=== PATIENT | female | born 1960 | race Caucasian/White ===

== ENCOUNTER 2024-05-02 08:54 | Inpatient (IN) ==
--- OUTSIDE RECORDS SUMMARY | 2024-05-02 09:01 | External Medical Summary | Summary of Care ---
Author Name Unknown Organization [facility] Address [address] [place] [address] Phone [phone] Care Team Providers Care Parimutuel Ticket Seller Name Role Phone Unavailable Primary Care Provider Unavailabl e Reason for Visit * Reason Comments Outpatient Testing Encounter Details Date Type Department Care Team (Late st Contact Info) Description 03/04/2024 8:40 AM EDT Laboratory Laboratory [facility] [address] [place] [phone] [facility] [address] [facility] [place] [address] Elevated cholesterol Allergies Active Allergy Reactions Criticality Noted Date Comments Codeine 2011 Sulfa Antibiotics 07/20/1997 stomach, SOB, throat swelling documented as of this encounter (statuses as of 03/04/2024) Medications Medication Sig Dispensed Refills Start Date End Date Status MULTIVITAMIN TABS OR 1 tbalet daily 0 09/24/2002 Active FISH OIL 1000 MG PO CAPS 1bid Active Triamcinolone Acetonide 0.5 % creamIndications:De rmatitis Apply topically to affected area 2 times a day. To affected area. 60 g 0 02/23/2016 Active Calcium & Vit D3 Bone Health Oral Liquid Take by mouth . Active Probiotic-Prebiotic 1-250 BILLION-MG Oral Capsule Take by mouth . Active Co Q-10 100 MG Oral Capsule Take by mouth. Active Antioxidant Formula Oral Capsule Take by mouth. Active Black Pepper-Turmeric 3-500 MG Oral Capsule Take 4 Capsules by mouth in the morning and 4 Capsules before bedtime. Active Metoprolol Succinate ER 25 MG Oral Tablet Extended Release 24 Hour (Toprol XL) One half tablet by mouth daily with your event meal 45 Tablet 3 11/14/2023 Active Additional Information Patient not taking.Reported on 12/23/2023 documented as of this encounter (statuses as of 03/04/2024) Active Problems Problem Noted Date Diagnosed Date Heart palpitations 10/14/2023 Elevated blood pressure reading 10/14/2023 Irritation of both eyes 10/14/2023 Fibroid, uterine 06/28/2017 Family history of hypothyroidism 12/19/2014 Elevated liver enzymes 12/19/2014 Overview: January 2016 WNL. Menopause 12/19/2014 Family history of hypertension 12/19/2014 Fam hx-osteoporosis 05/06/2012 Breast implant rupture 10/09/2011 Neoplasm of uncertain behavior of skin 0 ADVANCE DIRECTIVE INFORMATION 03/05/2006 Overview: Pt will supply copy. Mild Depression 05/31/1999 Family Hx Ovarian Ca in mother Family Hx malignant melanoma in father documented as of this encounter (statuses as of 03/04/2024) Resolved Problems Problem Noted Date Diagnosed Date Resolved Date Polymyalgia rheumatica 12/16/201704/07 Overview: On a 2.5 mg per month prednisone wean Elevated LFTs 06/05/2016 06/05/2016 Vitamin D insufficiency 12/22/201408/30 Overview: November 2014 = 20. See PCP. January 2016 = 35. Taking supplementation during winter months. 2017 - sufficient levels, taking supplement biliary spasm 08/12/2001 01/29/2018 documented as of this encounter (statuses as of 03/04/2024) Immunizations Name Administration Dates Next Due COVID-19 mRNA, LNP-s, No Pre serve, 2-Dose Series (Moderna) 11/21/2020,10/26/2020 HEP A - Hepatitis A (Adult > 18 yrs) 07/25/2015 PPD 02/17/2006 Seasonal Influenza, PF, 6 M & above, IM , (FluLaval or Fluzone) 08/03/2021,08/17/2020,09/16/2019,2016 Seasonal Influenza, Quadriva lent, No Preserve, IM 07/22/2016,07/25/2015 Seasonal Influenza, Split, I IV3, With Preserve, Inj 07/30/2013,09/27/2010 TDAP, Age 7 and older, IM (Adacel) 02/18/2022, Typhoid Vaccine Oral (Vivotif) 07/13/2015 Zoster Vaccine Recombinant (Shingrix) 11/30/2019 ,09/16/2019 documented as of this encounter Social History Tobacco Use Types Packs/Day Years Used Date Smoking Tobacco: Former Cigarettes Q uit: 09/29/1979 Smokeless Tobacco: Never Comments:Quit at 20 Alcohol Use Standard Drinks/Week Comments Yes 0 (1 standard drink = 0.6 oz pur e alcohol) SOCIALLY PHQ-2 Answer Date Recorded PHQ-2 Score 1 11/30/2019 Hunger Vital Sign Answer Date Recorded Within the past 12 months, y ou worried that your food would run out before you got the money to buy more. Never true 09/17/20 22 Within the past 12 months, t he food you bought just didn't last and you didn't have money to get more. Never true 09/17/2022 Sex and Gender Information Value Date Recorded Sex Assigned at Female 08/02/2021 10:01 AM EDT Gender Identity Female 08/02/2021 10:01 AM EDT Sexual Orientation Straight 08/02/2021 10 :01 AM EDT Job Start Date Occupation Industry Not on file Not on file Not on file documented as of this encounter Plan of Treatment Upcoming Encounters Date Type Department Care Team (Late st Contact Info) Description 03/12/2024 8:00 AM EDT Office Visit Gastroenterology, Jorge Bellamy [address] [place] [address] [place] [phone] Rosemarie Mayo PA-C [facility] [place] [address] Pending Results Name Type Priority Associated Diagnoses Date /Time LIPID PANEL WITH DIRECT LDL IF TG IS HIGH Lab Routine Elevated cholesterol 03/04/2024 7:35 AM EDT CRP, HIGH SENSITIVITY (CARDIOVASCULAR RISK) Lab Routine Elevated cholesterol 03/04/2024 7:35 AM EDT Scheduled Procedures Name Priority Associated Diagnoses Date/Ti me COLONOSCOPY FLEXIBLE PROXIMAL DIAGNOSTIC Recall History of colon polyps Health Maintenance Due Date Last Done Comments Hepatitis C Screening 1977 Cologuard 02/21/2004 Fecal Occult Blood Test 02/21/2004 Sigmoidoscopy 02/21/2004 COVID-19 Vaccine (3 - 2022- season) 2023 11/21/2020, 10/26/2020 Pneumococcal Vaccine: 65+ Years (1 of 1 - PCV) 02/21/2024 Mammogram 11/17/2024 11/17/2023, 03/29, 03/12/2019, Additional history exists Lipid Panel 11/12/2028 11/12/2023, 11/2019, 12/22/2014, Additional history exists DTaP,Tdap,and Td Vaccines (3 - Td or Tdap) 02/19/2032 02/18/2022, 01/02/2012, 11/05/2000 DXA Scan 02/19/2032 02/18/2022 Colonoscopy 10/15/2032 10/15/2022, 09/29, 06/24/2016, Additional history exists Colorectal Cancer Screening 10/15/2032 Zoster Vaccines Completed 11/30/2019, 09/16/2019 Cervical Cancer Screening Discontinued Pap Smear Discontinued 09/20/2020, 05/31, 06/05/2016, Additional history exists RETIRED - COLONOSCOPY-EVERY 5 YRS AGES 18-100 Discontinued 10/15/2022, 10/15/2022, 06/24/2016, Additional history exists Influenza Vaccine (FLU shot) Completed 07/04/2023, 08/03/2021, 08/17/2020, Additional history exists GARDASIL-HPV IMMUNIZATION SERIES Aged Out No longer eligible based on patient's age to complete this topic HPV/Co-Test Discontinued Hepatitis B Aged Out No longer eligi ble based on patient's age to complete this topic MENINGOCOCCAL (MENACTRA/MENVEO) Aged Out No longer eligible based on patient's age to complete this topic documented as of this encounter Medical Devices Implanted Type Area Policy Checker Device Identifier Shelf Expiration Date Model / Serial / Lot Implant Breast Katie [id number] - [id number] Implanted:Qty: 1 on 09/19/2011 at [facility] Right: Breast [employer] 02/26/2016 [id number] / [id number] / [id number] documented as of this encounter Visit Diagnoses Diagnosis Elevated cholesterol Pure hypercholesterolemia documented in this encounter Advance Directives * Full Code (Latest Code Status on File) Date Activated Date Inactivated Comments 09/19/2011 10:38 AM 09/19/2011 5:20 PM This orde r reflects the patients wishes and were consensually agreed upon. Question Answer Comments Discussion of Advance Directives occurred with: Patient
--- OUTSIDE RECORDS SUMMARY | 2024-05-02 09:01 | External Medical Summary ---
Author Name Unknown Address Unknown Organization [id number][place] [place] [address] [facility] [address] Laboratory Report Ordering Provider Test Date Status ADELINE BHATIA 03/04/2024 07:35:56 Final Observation Date Value Abnormality Reference (Units ) Status Triglyceride 03/04/2024 07:35:56 40 <=174 ( mg/dL) Final Triglyceride Reference Range s (mg/dL):
<150 Acceptable
150-174 Borderline high
175-499 High
>=500 Very high Cholesterol 03/04/2024 07:35:56 212 Above high normal <200 (mg/dL) Final Total Cholesterol Reference Ranges (mg/dL):
<200 Desirable
200-239 Borderline high
>=240 High HDL 03/04/2024 07:35:56 77 >49 (mg/dL ) Final HDL Cholesterol Reference Ra nges (mg/dL):
>=60 High (Desirable)
<50 Low (Undesirable) For Females
<40 Low (Undesirable) For Males NON-HDL CHOLESTEROL 03/04/2024 07:35:56 135 <=159 (mg/dL) Final Non-HDL Cholesterol Referenc e Range (mg/dL):
<100 Target level for high risk ASCVD patient
<130 Optimal for general population
130-159 Near optimal for general population
160-189 Borderline High
190-219 High
>=220 Very High LDL, (calculated) 03/04/2024 07:35:56 127 <= 129 (mg/dL) Final LDL Cholesterol Reference Ra nges (mg/dL):
<70 Target level for high risk ASCVD patient
<100 Optimal for general population
100-129 Near optimal for general population
130-159 Borderline high
160-189 High
>=190 Very high Performing Location [facility] [place] [address] [facility] [address]
--- OUTSIDE RECORDS SUMMARY | 2024-05-02 09:01 | External Medical Summary ---
Author Name Unknown Address Unknown Organization [id number]:[facility] [place] [address] [place] [address] Laboratory Report Ordering Provider Test Date Status ADELINE BHATIA 03/04/2024 07:35:56 Final Cardiovascular Disease Risk Assessment
(Relative Risk)
<1.0 mg/L Low
1.0-3.0 mg/L Average
>3.0 mg/L High

*This table may not apply in certain inflammatory conditions. Observation Date Value Abnormality Reference (Units ) Status CRP, High-sensitivity 03/04/2024 07:35:56 3.83 Above high normal <=3.00 (mg/L) Final Performing Location [facility] [place] [address] [place] [address]
--- OUTSIDE RECORDS SUMMARY | 2024-05-02 09:01 | External Medical Summary | Summary of Care ---
Author Name Unknown Organization [facility] Address [address] [place] [address] Phone [phone] Care Team Providers Care Layup Worker Name Role Phone Unavailable Primary Care Provider Unavailabl e Reason for Visit * Reason Onset Date Comments Appointment 03/01/2024 Encounter Details Date Type Department Care Team (Late st Contact Info) Description 03/01/2024 Telephone [address], [place] [address] [facility] [place] [address] Janis Patel, RT (R) Appointment Allergies Active Allergy Reactions Criticality Noted Date Comments Codeine 2011 Sulfa Antibiotics 07/20/1997 stomach, SOB, throat swelling documented as of this encounter (statuses as of 03/01/2024) Medications Medication Sig Dispensed Refills Start Date [...] as of this encounter (statuses as of 03/01/2024) Active Problems Problem Noted Date Diagnosed Date [...] as of this encounter (statuses as of 03/01/2024) Resolved Problems Problem Noted Date Diagnosed Date Resolved Date Polymyalgia rheumatica 12/16/201704/07 Overview: On a 2.5 mg per month prednisone wean Elevated LFTs 06/05/2016 06/05/2016 Vitamin D insufficiency 12/22/201408/30 Overview: November 2014 = 20. See PCP. January 2016 = 35. Taking supplementation during winter months. 2017 - sufficient levels, taking supplement biliary spasm 08/12/2001 01/29/2018 documented as of this encounter (statuses as of 03/01/2024) Immunizations Name Administration Dates Next Due COVID-19 [...] on file documented as of this encounter Miscellaneous Notes * Telephone Encounter - Janis Patel RT (R) - 03/01/2024 3:02 PM EDT Left message for patient to arrive at 3:30pm for check in and to call back with any yes answers to screening questions documented in this encounter Plan of Treatment Upcoming Encounters Date Type Department Care Team (Late st Contact Info) Description 03/02/2024 4:00 PM EDT Imaging Radiology [address] [place] [address] 03/04/2024 7:00 AM EDT Imaging Radiology [address] [place] [address] 03/12/2024 8:00 AM EDT Office Visit Gastroenterology, Jorge Bellamy [address] [place] [phone] Rosemarie Mayo PA-C [address] [facility] [place] [address] Scheduled Procedures Name Priority Associated Diagnoses Date/Ti me COLONOSCOPY FLEXIBLE PROXIMAL DIAGNOSTIC Recall History of colon polyps Health Maintenance Due Date Last Done Comments Hepatitis C Screening 1977 Cologuard 02/21/2004 Fecal Occult Blood Test 02/21/2004 Sigmoidoscopy 02/21/2004 COVID-19 Vaccine (2022- season) 2023 11/21/2020, 10/26/2020 Pneumococcal Vaccine: 65+ [...] this encounter Medical Devices Implanted Type Area Transplant Registered Nurse Device Identifier Shelf Expiration Date Model / Serial / Lot Implant Breast Katie [id number] - [id number] Implanted:Qty: 1 on 09/19/2011 at [facility] Right: Breast [employer] CARLIN 02/26/2016 [id number] / [id number] / [id number] documented as of this encounter Advance Directives * Full Code (Latest Code Status on File) Date Activated Date Inactivated Comments 09/19/2011 10:38 AM 09/19/2011 5:20 PM This orde r reflects the patients wishes and were consensually agreed upon. Question Answer Comments Discussion of Advance Directives occurred with: Patient
--- OUTSIDE RECORDS SUMMARY | 2024-05-02 09:01 | External Medical Summary | Summary of Care ---
Author Name Unknown Organization [facility] Address [address] [place] [address] Phone [phone] Care Team Providers Care Wellness Manager Name Role Phone Unavailable Primary Care Provider Unavailabl e Encounter Details Date Type Department Care Team (Late st Contact Info) Description 01/22/2024 Result Scan Unspecified Department <No scans attached> Allergies Active Allergy Reactions Criticality Noted Date Comments Codeine 2011 Sulfa Antibiotics 07/20/1997 stomach, SOB, throat swelling documented as of this encounter (statuses as of 01/26/2024) Medications Medication Sig Dispensed Refills Start Date End Date Status MULTIVITAMIN TABS OR 1 tbalet daily 0 09/24/2002 Active FISH OIL 1000 MG PO CAPS 1bid 0 Active Triamcinolone Acetonide 0.5 % creamIndications:De rmatitis Apply topically to affected area 2 times a day. To affected area. 60 g 0 02/23/2016 Active Calcium & Vit D3 Bone Health Oral Liquid Take by mouth . 0 Active Probiotic-Prebiotic 1-250 BILLION-MG Oral Capsule Take by mouth . 0 Active Co Q-10 100 MG Oral Capsule Take by mouth. 0 Active Antioxidant Formula Oral Capsule Take by mouth. 0 Active Black Pepper-Turmeric 3-500 MG Oral Capsule Take 4 Capsules by mouth in the morning and 4 Capsules before bedtime. 0 Active Metoprolol Succinate ER 25 MG Oral Tablet Extended Release 24 Hour (Toprol XL) One half tablet by mouth daily with your event meal 45 Tablet 3 11/14/2023 Active Additional Information Patient not taking.Reported on 12/23/2023 documented as of this encounter (statuses as of 01/26/2024) Active Problems Problem Noted Date Diagnosed Date [...] as of this encounter (statuses as of 01/26/2024) Resolved Problems Problem Noted Date Diagnosed Date Resolved Date Polymyalgia rheumatica 12/16/201704/07 Overview: On a 2.5 mg per month prednisone wean Elevated LFTs 06/05/2016 06/05/2016 Vitamin D insufficiency 12/22/201408/30 Overview: November 2014 = 20. See PCP. January 2016 = 35. Taking supplementation during winter months. 2016 - sufficient levels, taking supplement biliary spasm 08/12/2001 01/29/2018 documented as of this encounter (statuses as of 01/26/2024) Immunizations Name Administration Dates Next Due COVID-19 mRNA, LNP-s, No Pre serve, 2-Dose Series (Moderna) 11/21/2020,10/26/2020 HEP A - Hepatitis A (Adult > 18 yrs) 07/25/2015 PPD 02/17/2006 Seasonal Influenza, PF, 6 M & above, IM , (FluLaval or Fluzone) 08/03/2021,08/17/2020,09/16/2019,2016 Seasonal Influenza, Quadriva lent, No Preserve, IM 07/22/2016,07/25/2015 Seasonal Influenza, Split, I IV3, With Preserve, Inj 07/30/2013,09/27/2010 TDAP (age 11 and older)(Adacel) 02/18/2022,01/01 Typhoid Vaccine Oral (Vivotif) 07/13/2015 Zoster Vaccine [...] Care Team (Late st Contact Info) Description 01/30/2024 2:30 PM EDT Imaging Radiology [address] [place] [address] 03/12/2024 8:00 AM EDT Office Visit Gastroenterology, Jorge Bellamy [address] [place] [address] [place] [phone] Rosemarie Mayo PA-C [address] [place] [address] [place] [phone] Scheduled Procedures Name Priority Associated Diagnoses Date/Ti me COLONOSCOPY FLEXIBLE PROXIMAL DIAGNOSTIC Recall History of colon polyps Health Maintenance Due Date Last Done Comments Hepatitis C Screening 1977 HPV/Co-Test 1989 Cologuard 02/21/2004 Fecal Occult Blood Test 02/21/2004 Sigmoidoscopy 02/21/2004 COVID-19 Vaccine ( season) 2023 11/21/2020, 10/26/2020 Cervical Cancer Screening 09/20/2023 Pap Smear 09/20/2023 09/20/2020, 05/31, 06/05/2016, Additional history exists Mammogram 11/17/2024 11/17/2023, 03/29, 03/12/2019, Additional history exists Lipid Panel 11/12/2028 11/12/2023, 11/2019, 12/22/2014, Additional history exists DTaP,Tdap,and Td Vaccines (3 - Td or Tdap) 02/19/2032 02/18/2022, 01/02/2012, 11/05/2000 Colonoscopy 10/15/2032 10/15/2022, 09/29, 06/24/2016, Additional history exists Colorectal Cancer Screening 10/15/2032 Zoster Vaccines Completed 11/30/2019, 09/16/2019 RETIRED - COLONOSCOPY-EVERY 5 YRS AGES 18-100 Discontinued 10/15/2022, 10/15/2022, 06/24/2016, Additional history exists Influenza Vaccine (FLU shot) Completed 07/04/2023, 08/03/2021, 08/17/2020, Additional history exists GARDASIL-HPV IMMUNIZATION SERIES Aged Out No longer eligible based on patient's age to complete this topic Hepatitis B Aged Out No longer eligi ble based on patient's age to complete this topic MENINGOCOCCAL (MENACTRA/MENVEO) Aged Out No longer eligible based on patient's age to complete this topic Pneumococcal Vaccine: Pediatrics (0 to 5 Years) and At-Risk Patients (6 to 64 Years) Aged Out No longer eligible based on patient's age to complete this topic documented as of this encounter Medical Devices Implanted Type Area Telehealth Nurse Educator Device Identifier Shelf Expiration Date Model / Serial / Lot Implant Breast Katie [id number] - [id number] [place]ed:[place] 09[place]19[place] [facility] [place] Breast [employer]ENT[employer] CARLIN 02/26/2016 [id number] / [id number] / [id number] documented as of this encounter Procedures Procedure Name Priority Date/Time Associated Diagnosis Comments ECHOCARDIOLOGY SCANNED RESULT 01/22/2024 documented in this encounter Results * ECHOCARDIOLOGY SCANNED RESULT (01/22/2024) 01/22/2024 No Physician Data Unknown ECHOCARDIOLOGY documented in this encounter Advance Directives Latest Code Status on File Code Status Date Activated Date Inactivated Comments Full Code 09/19/2011 10:38 AM 09/19/2011 5:20 PM Th is order reflects the patients wishes and were consensually agreed upon. Question Answer Comments Discussion of Advance Directives occurred with: Patient
--- OUTSIDE RECORDS SUMMARY | 2024-05-02 09:01 | External Medical Summary | Summary of Care ---
Author Name Unknown Organization [facility] Address [address] [place] [address] Phone [phone] Care Team Providers Care Furniture And Bedding Inspector Name Role Phone Unavailable Primary Care Provider Unavailabl e Reason for Referral * Precert (Within 10 days (routine)) - Pending Review Specialty Diagnoses / Procedures Referred By Nav t Referred To Contact Cardiac Studies Diagnoses Interatrial cardiac shunt Nonrheumatic mitral valve regurgitation Nonrheumatic aortic valve insufficiency Nonrheumatic tricuspid valve regurgitation Procedures TRANSESOPHAGEAL ECHO (COMPLETE) Viktor Cook DO [address] [place] [address] Referral ID Status Reason Start Date Expiration Date Visits Requested Visits Authorized [id number] Pending Review Precert 12/24/2023 999 999 Reason for Visit * Reason Comments Follow Up Encounter Details Date Type Department Care Team (Latest Contact Info) Description 12/23/2023 2:00 PM EDT Office Visit Cardiology, [facility] [address] [facility] [place] [address] Viktor Cook DO [address] [facility] [place] [address] Interatrial cardiac shunt*; Nonrheumatic mitral valve regurgitation; Nonrheumatic aortic valve insufficiency; Nonrheumatic tricuspid valve regurgitation; PSVT (paroxysmal supraventricular tachycardia) Allergies Active Allergy Reactions Criticality Noted Date Comments Codeine 2011 Sulfa Antibiotics 07/20/1997 stomach, SOB, throat swelling documented as of this encounter (statuses as of 02/25/2024) Medications Medication Sig Dispensed Refills Start Date [...] as of this encounter (statuses as of 02/25/2024) Active Problems Problem Noted Date Diagnosed Date [...] as of this encounter (statuses as of 02/25/2024) Resolved Problems Problem Noted Date Diagnosed Date Resolved Date Polymyalgia rheumatica 12/16/201704/07 Overview: On a 2.5 mg per month prednisone wean Elevated LFTs 06/05/2016 06/05/2016 Vitamin D insufficiency 12/22/201408/30 Overview: November 2014 = 21. See PCP. January 2016 = 36. Taking supplementation during winter months. 2017 - sufficient levels, taking supplement biliary spasm 08/12/2001 01/29/2018 documented as of this encounter (statuses as of 02/25/2024) Immunizations Name Administration Dates Next Due COVID-19 mRNA, LNP-s, No Pre serve, 2-Dose Series (Moderna) 11/21/2020,10/26/2020 HEP A - Hepatitis A (Adult > 18 yrs) 07/25/2015 PPD 02/17/2006,12/30/2003,12/16/2003 Seasonal Influenza Virus Vac cine, Unspecified Formulation 07/20/1997 Seasonal Influenza, PF, 6 M & above, IM , (FluLaval or Fluzone) 08/03/2021,08/17/2020,09/16/2019,2016 Seasonal Influenza, Quadriva lent, No Preserve, IM 07/22/2016,07/25/2015 Seasonal Influenza, Split, I IV3, With Preserve, Inj 07/30/2013,09/27/2010 TD - Tetanus/Diptheria (ADULT) 11/05/2000 TDAP, Age 7 and older, IM (Adacel) 02/18/2022, Typhoid Vaccine Oral (Vivotif) 07/13/2015 Zoster Vaccine Recombinant (Shingrix) 11/30/2019 ,09/16/2019 documented as of this encounter Social History Tobacco Use Types Packs/Day Years Used Date Smoking Tobacco: Former Cigarettes Q uit: 09/29/1979 Smokeless Tobacco: Never Tobacco Cessation:Counseling Given: No Comments:Quit at 20 Alcohol Use Standard Drinks/Week [...] on file documented as of this encounter Last Filed Vital Signs Vital Sign Reading Time Taken Comments Blood Pressure 138/60 12/23/2023 1:56 PM EDT Pulse 60 12/23/2023 1:56 PM EDT Temperature - - Respiratory Rate 12 12/23/2023 1:56 PM EDT Oxygen Saturation - - Inhaled Oxygen Concentration - - Weight 49.4 kg (108 lb 14.4 oz) 12/23/2023 1:56 PM EDT Height - - Body Mass Index 20.24 10/14/2023 10:47 AM EST documented in this encounter Progress Notes * Viktor Cook, - 02/25/2024 5:45 PM EDT Addendum: Ms. Haile is a 64-year-old physically active female. In October, she had undergone a screening lipid panel with findings of elevated total cholesterol level of 244 milligrams/deciliter, LDL cholesterol 145 milligrams/deciliter. BP Readings from Last 4 Encounters: 12/23/23 138/60 12/15/23 134/85 11/14/23 144/56 10/14/23 160/80 Latest Reference Range & Units 11/12/23 07:23 Triglycerides <=174 mg/dL 47 Cholesterol <200 mg/dL 244 (H) Non-HDL Cholesterol <=159 mg/dL 154 HDL Cholesterol >49 mg/dL 90 LDL Cholesterol <=129 mg/dL 145 (H) (H): Data is abnormally high She has a history of a mildly elevated blood pressure reading at her most recent clinic visit without the diagnosis of hypertension, no known coronary or vascular disease, and no family history of premature coronary heart disease She was very concerned with regards to her risk given the cholesterol findings, and requests further risk stratification. Recommend proceeding with a high sensitivity C-reactive protein and a CT calcium score. Her ACC/ AHA 10 year cohort risk of ASCVD event= 5.8%. Patient aware that if insurance does not approve the calcium score, [id number] cost would be around $200. DO Viktor Medrano DO 02/25/2024 5:45 PM * Viktor Cook DO - 12/23/2023 2:25 PM EDT 12/23/2023 Cardiology Follow Up CHIEF COMPLAINT: Paroxysmal supraventricular tachycardia, valvular heart disease, interatrial shunt SUBJECTIVE: Tatiana Haile is a 63 year old year old female who presents today in follow-up of the above concerns. She was accompanied by her , Alan. She had initially been seen in consultation in October, for the evaluation of palpitations and chest discomfort. 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 She had previously been a regular runner, and hikes regularly walking 20 to 30 miles per week. She and her plan an upcoming hike in [place] in Jan, 2024. At present she notes that her palpitations have not worsened. At her previous appointment she had been counseled to start metoprolol succinate 12.5 milligrams daily. She picked up the prescription but it yet to start it pending further discussion at the time of today's visit. She had undergone an exercise stress echocardiogram with results as noted below as well as a Zio patch with results as noted below. Extensive ROS: All systems reviewed & are unremarkable except as noted in HPI & below Cardiovascular (chest pain/palpitations/fluttering/diaphoresis/dyspnea on exertion/paroxysmally nocturnal dyspnea):Negative Review of patient's allergies indicates: Allergen Reactions Codeine Sulfa Antibiotics stomach, SOB, throat swelling Current Outpatient Medications Medication Sig Dispense Refill MULTIVITAMIN TABS OR 1 tbalet daily 0 FISH OIL 1000 MG PO CAPS 1bid Triamcinolone Acetonide 0.5 % cream Apply topically to affected area 2 times a day. To affected area. 60 g 0 Calcium & Vit D3 Bone Health Oral Liquid Take by mouth . Probiotic-Prebiotic 1-250 BILLION-MG Oral Capsule Take by mouth . Co Q-10 100 MG Oral Capsule Take by mouth. Antioxidant Formula Oral Capsule Take by mouth. Black Pepper-Turmeric 3-500 MG Oral Capsule Take 4 Capsules by mouth in the morning and 4 Capsules before bedtime. Metoprolol Succinate ER 25 MG Oral Tablet Extended Release 24 Hour (Toprol XL) One half tablet by mouth daily with your event meal (Patient not taking: Reported on 12/23/2023) 45 Tablet 3 No current facility-administered medications for this visit. OBJECTIVE/PHYSICAL EXAMINATION: BP 138/60 (BP Site: Left Arm, BP Position: Sitting, BP Cuff Size: Regular) | Pulse 60 | Resp 12 | Wt 49.4 kg (108 lb 14.4 oz) | LMP 03/29/2009 | BMI 20.24 kg/m | BSA 1.46 m General: no acute distress and stated age Eyes: conjunctiva are pink and non-injected, sclera clear Neck: normal jugular venous pulse, no hepatojugular reflux Chest: normal shape and normal respiratory effort Lungs: clear to auscultation , no rales rhonchi or wheezing Cardiac Exam: - regular heart sounds, no murmurs, rubs, or gallops Abdomen: abdomen soft, non-tender, no abnormal masses and no hepatosplenomegaly Musculoskeletal: no gait disturbance, no weakness Extremities: no edema and no cyanosis Neuro: grossly normal exam Psych: appropriate affect and insight. Data: EKG performed 10/14/2023: Sinus bradycardia 59 beats per minute with occasional PACs. Summary of stress echocardiogram performed 12/15/23: The stress test was terminated due to 90 percent of target heart rate achieved walking 12 minutes with a METS of 10.3. No symptoms were noted. Hypertensive blood pressure response to exercise. Normal heart rate response to exercise. No arrhythmias noted during stress. Resting echocardiogram: The qualitative LV ejection fraction is 55-59% (normal). The right ventricular cavity size is normal. The right ventricular systolic function is qualitatively normal. Mild aortic valve regurgitation is present. Mild to moderate mitral regurgitation. Mild tricuspid regurgitation is present. The estimated pulmonary artery systolic pressure is 25mm Hg. Bubble test significantly positive (>20 microbubles) for a right to left intracardiac shunt, possible atrial septal defect can consider transesophageal echocardiogram for further evaluation. Summary of Zio patch monitor from September,: Duration: 13 days, 20 hours Final Interpretation Patient had a min HR of 42 bpm, max HR of 207 bpm, and avg HR of 64 bpm. Predominant underlying rhythm was Sinus Rhythm. 197 Supraventricular Tachycardia runs occurred, the run with the fastest interval lasting 8 beats with a max rate of 207 bpm, the longest lasting 18.6 secs with an avg rate of 130 bpm. Supraventricular Tachycardia was detected within +/- 45 seconds of symptomatic patient event(s). Isolated SVEs were rare (<1.0%), SVE Couplets were rare (<1.0%), and SVE Triplets were rare (<1.0%). Isolated VEs were rare (<1.0%), VE Couplets were rare (<1.0%), and no VE Triplets were present. 5 patient triggered events and 3 diary events were submitted for review. The events correlated withsinus rhythm with premature atrial contractions as well as with brief episodes of supraventricular tachycardia. ASSESSMENT / PLAN: 63 year old year old female ICD-10-CM 1. Interatrial cardiac shunt Q24.8 2. Nonrheumatic mitral valve regurgitation I34.0 3. Nonrheumatic aortic valve insufficiency I35.1 4. Nonrheumatic tricuspid valve regurgitation I36.1 5. PSVT (paroxysmal supraventricular tachycardia) I47.10 Discussion: As noted, stress echocardiogram was negative for inducible ischemia having achieved a high workload. She was found to have underlying valvular heart disease including mild aortic valve regurgitation, uugk-it-wxunblik mitral regurgitation, and mild tricuspid regurgitation with an estimated pulmonary systolic pressure of 25 millimeters Hg (normal). The interatrial septum was noted to be redundant. Ajjvfd-[id number] interatrial shunt was detected with the administration of agitated saline contrast consistent with a PFO or atrial septal defect. Patient agreeable to proceeding with a transesophageal echocardiogram for further evaluation of theinteratrial septum as well as her valvular structure and function. This will likely be performed inApril, before she leaves for her hike. We discussed the results of her Zio patch monitor again in detail. She was going to proceed with a trial of metoprolol succinate 12.5 milligrams daily with her evening meal his most of her symptoms seem to occur close to bedtime. DISPOSITION: Follow Up: Return in about 6 months (around 06/24/2024) for Clinic Visit. | For: Clinic Visit Viktor oCok, Cardiology, [address] [place] [address] This chart was completed in part utilizing [employer] Speech Voice Recognition Software. Grammatical errors, random word insertions, prounoun errors, and incomplete sentences are an occasional consequence of this system due to software limitations, ambient noise, and hardware issues. Any formal questions or concerns about the content, text, or information contained within the body of this dictation should be directly addressed to the provider for clarification. documented in this encounter Nursing Notes * Eli Patel RN - 12/23/2023 1:57 PM EDT Examination Room: 10 Name: Tatiana Haile Date of : (1960). Reason for Visit: Follow up Interim Hospitalization(s): No Problems/Concerns: Here to discuss results of stress testing/echo. Chest Pain/SOB: Denies [facility] Discussed: Not applicable [facility] is a way you can talk to your provider online through e-mail. Would you like to sign up? I can activate it for you? ALREADY ACTIVE Patient was instructed to not get up on the exam table until directed and assisted by their provider; patient is to remain seated in the chair/ wheelchair/ exam table for fall prevention and safety reasons. Patient is aware to have assistance to step down off exam table with personnel. Patient voiced full comprehension of instructions. documented in this encounter Miscellaneous Notes * Pt Handout (on AVS) - JULIETA, PATIENT HANDOUT - 12/23/2023 3:15 PM EDT Images from the original note were not included. [id number] Transesophageal Echocardiography (EDWARD) Transesophageal echocardiography (EDWARD) is a test done to record images of your heart with a probe inside your throat (esophagus). These images help your healthcare provider find and treat problems such as infection, disease, or defects in your heart?s function, white or valves. This test may be done when a chest echocardiogram (transthoracic) doesn't give your provider enough information. A probe in your esophagus produces sound waves. Before your test Tell your healthcare provider about all the medicines you take. Ask if you should take them before the test. Your stomach typically should be empty for this test to prevent vomiting, so your provider will likely tell you not to take them. Follow any directions you're given for not eating or drinking before the procedure. Tell your provider if you have ulcers, a hiatal hernia, or problems swallowing. Also report a history of narrowing of the esophagus, or any other past gastrointestinal problems. A smaller probe may be needed for your study. Let the provider know of any allergies to medicines or sedatives. Also let them know if you have dental implants or dentures that should be removed before the test. Arrange to have someone drive you home after the exam. You'll be given a sedative for the test. It won't be safe to drive for a period of time. During your EDWARD When you arrive for your EDWARD, you'll change into a hospital gown, and then be taken to the testing room. Your provider will spray your throat with a numbing medicine. You may be given a medicine through an IV (intravenous) line in your arm to help you relax. You may also be given oxygen. Then you?ll be asked to lie on your left side. The healthcare provider gently puts the small, lubricated probe into your mouth. A small plasticor rubber bite-block will be put in your mouth to prevent you from biting down on the probe during the test. As you swallow, the provider will slowly guide the tube into your esophagus. You may feel the healthcare provider moving the probe. But it shouldn?t hurt or interfere with your breathing. A nurse checks your heart rate, blood pressure, and breathing. The test usually takes15 to 30 minutes. The nurse paper machine operator will suction any saliva out of your mouth, similar to when you have a dental cleaning. After the test Tell your healthcare provider about any pain. Let them know if you cough up or vomit blood, or have trouble swallowing. Your throat may be sore for a few hours. You can eat and drink again when your throat is no longer numb and you're fully awake. Don't drive a car or run heavy machinery for at least 24 hours after getting sedation. Most people can return to normal activities after 24 hours.. Ask your healthcare provider when it's safe for you to return to normal activities. Keep your follow-up appointment to go over the results with your healthcare provider. Your next appointment is: Last Reviewed Date: 05/30/202119990120-1592 [employer]. All rights reserved. This information is not intended as a substitute for professional medical care. Always follow your healthcare professional's instructions. documented in this encounter Plan of Treatment Upcoming Encounters Date Type Department Care Team (Late st Contact Info) Description 03/02/2024 4:00 PM EDT Imaging Radiology [address], [address] [place] [address] 03/12/2024 8:00 AM EDT [facility] [address] [place] [address] [place] [address] Rosemarie Mayo PA-C [address] [place] [address] [place] [address] Scheduled Orders Name Type Priority Associated Diagnoses Orde r Schedule TRANSESOPHAGEAL ECHO (COMPLETE) Echocardiology Routine Interatrial cardiac shunt Nonrheumatic mitral valve regurgitation Nonrheumatic aortic valve insufficiency Nonrheumatic tricuspid valve regurgitation Expected: 12/24/2023, Expires: 06/24/2024 Scheduled Procedures Name Priority Associated Diagnoses Date/Ti me COLONOSCOPY FLEXIBLE PROXIMAL DIAGNOSTIC Recall History of colon polyps Health Maintenance Due Date Last Done Comments Hepatitis C Screening 1977 Cologuard 02/21/2004 Fecal Occult Blood Test 02/21/2004 Sigmoidoscopy 02/21/2004 COVID-19 Vaccine ( season) 2023 11/21/2020, 10/26/2020 Pneumococcal Vaccine: 65+ Years (1 of 1 - PCV) 02/21/2024 Mammogram 11/17/2024 11/17/2023, 0705/2022, 03/12/2019, Additional history exists Lipid Panel 11/12/2028 11/12/2023, 0311/2019, 12/22/2014, Additional history exists DTaP,Tdap,and Td Vaccines [...] this encounter Medical Devices Implanted Type Area Baggage Security Checker Device Identifier Shelf Expiration Date Model / Serial / Lot Implant Breast Katie [id number] - [id number] Implanted:Qty: 1 on 09/19/2011 at OR [facility] Right: Breast MENTOR CARLIN 02/26/2016 [id number] / [id number] / [id number] documented as of this encounter Results * MAGNESIUM (12/23/2023 3:26 PM EDT) Magnesium 2.4 1.5 - 2.6 mg/dL 12/24/2023 7:37 AM EDT LAB[facility]ATORY [facility] Blood Venous blood specimen / Unknown Venipuncture / Unknown 12/23/2023 3:26 PM EDT 12/23/2023 3:26 PM EDT Viktor Cook DO LAB BLOOD ORDERABLES LABORATORY [facility] [address] [place] [address] * (ABNORMAL) COMPREHENSIVE METABOLIC PANEL (12/23/2023 3:26 PM EDT) [facility] Signature BUN 18 6 - 20 mg/dL 12/23/2023 4:24 PM EDT [facility] [place] [facility] Creatinine 0.7 0.5 - 1.0 mg/dL 12/23/2023 4:24 PM EDT [facility] [place] [facility] Estimated Glomerular Filtration Rate >90 >=60 mL/min 12/23/2023 4:24 PM EDT [facility] [place] [facility] Comment:eGFR is calculated b ased on the CKD-EPI 2020 equation Sodium 140 135 - 146 mmol/L 12/23/2023 4:24 PM EDT [facility] [place] [facility] Potassium 4.6 3.5 - 5.1 mmol/L 12/23/2023 4:24 PM EDT [facility] [place] [facility] Chloride 102 98 - 107 mmol/L 12/23/2023 4:24 PM EDT [facility] [place] [facility] CO2 30 22 - 32 mmol/L 12/23/2023 4:24 PM EDT [facility] [place] [facility] Anion Gap 8 7 - 15 mmol/L 12/23/2023 4:24 PM EDT [facility] [place] [facility] Glucose 95 70 - 120 mg/dL 12/23/2023 4:24 PM EDT [facility] [place] [facility] Albumin 4.6 3.8 - 5.0 g/dL 12/23/2023 4:24 PM EDT [facility] [place] [facility] AST 37(H) 10 - 35 U/L 12/23/2023 4:24 PM EDT [facility] [place] [facility] Alkaline Phosphatase 104 35 - 130 U/L 12/23/2023 4:24 PM EDT [facility] [place] [facility] Bilirubin, Total 0.2 <=1.2 mg/dL 12/23/2023 4:24 PM EDT [facility] [place] [facility] Calcium 10.2 8.4 - 10.2 mg/dL 12/23/2023 4:24 PM EDT [facility] [place] [facility] Protein 7.0 6.0 - 8.3 g/dL 12/23/2023 4:24 PM EDT LAB[facility]ORY [place] [facility]10 ALT 43(H) 10 - 35 U/L 12/23/2023 4:24 PM EDT [facility] [place] [facility] Blood Venous blood specimen / Unknown Venipuncture / Unknown 12/23/2023 3:26 PM EDT 12/23/2023 3:26 PM EDT Viktor Cook DO LAB BLOOD ORDERABLES LAB[facility]ATORY [place] [address] [place] [address] * (ABNORMAL) CBC (12/23/2023 3:26 PM EDT) WBC 3.69(L) 4.00 - 10.80 K/uL 12/23/2023 3:38 PM EDT LAB[facility] [place] [facility]10 RBC 4.17 3.85 - 5.15 M/uL 12/23/2023 3:38 PM EDT [facility] [place] [facility]10 HGB 13.6 12.0 - 15.3 g/dL 12/23/2023 3:38 PM EDT [facility] [place] [facility]10 HCT 40.7 36.0 - 45.2 % 12/23/2023 3:38 PM EDT [facility] [place] [facility]10 MCV 97.6 81.5 - 97.5 fL 12/23/2023 3:38 PM EDT LAB[facility] [place] [facility]10 MCH 32.6 27.0 - 34.0 pg 12/23/2023 3:38 PM EDT [facility] [place] [facility]10 MCHC 33.4 32.0 - 36.0 g/dL 12/23/2023 3:38 PM EDT LAB[facility] [place] [facility]10 RDW 12.0 11.5 - 15.5 % 12/23/2023 3:38 PM EDT LAB[facility] [place] [facility]10 PLT 225 140 - 400 K/uL 12/23/2023 3:38 PM EDT LAB[facility] [place] [facility]10 MPV 9.6 6.6 - 11.1 fL 12/23/2023 3:38 PM EDT LABORATORY [facility] [place] [facility]10 Blood Venous blood specimen / Unknown Venipuncture / Unknown 12/23/2023 3:26 PM EDT 12/23/2023 3:26 PM EDT Viktor Cook DO LAB BLOOD ORDERABLES Performing Organization Address City/State/[facility] Co de Phone Number LABORATORY [facility] [place] [place] [address] documented in this encounter Visit Diagnoses Diagnosis Interatrial cardiac shunt- Primary Other postprocedural status Nonrheumatic mitral valve regurgitation Nonrheumatic aortic valve insufficiency Aortic valve disorders Nonrheumatic tricuspid valve regurgitation Tricuspid valve disorders, specified as nonrheumatic PSVT (paroxysmal supraventricular tachycardia) (HCC) Paroxysmal supraventricular tachycardia documented in this encounter Advance Directives * Full Code (Latest Code Status on File) Date Activated Date Inactivated Comments 09/19/2011 10:38 AM 09/19/2011 5:20 PM This orde r reflects the patients wishes and were consensually agreed upon. Question Answer Comments Discussion of Advance Directives occurred with: Patient"
--- OUTSIDE RECORDS SUMMARY | 2024-05-02 09:01 | External Medical Summary | Summary of Care ---
Author Name Unknown Organization [facility] Address [address] [place] [address] Phone [phone] Care Team Providers Care Cake Winder Name Role Phone Unavailable Primary Care Provider Unavailabl e Encounter Details Date Type Department Care Team (Late st Contact Info) Description 03/02/2024 Orders Only PATIENT PORTAL DO NOT DELETE THIS DEPT USED BY [place] [id number] Allergies Active Allergy Reactions Criticality Noted Date Comments Codeine 2011 Sulfa Antibiotics 07/20/1997 stomach, SOB, throat swelling documented as of this encounter (statuses as of 03/02/2024) Medications Medication Sig Dispensed Refills Start Date [...] as of this encounter (statuses as of 03/02/2024) Active Problems Problem Noted Date Diagnosed Date [...] as of this encounter (statuses as of 03/02/2024) Resolved Problems Problem Noted Date Diagnosed Date Resolved Date Polymyalgia rheumatica 12/16/201704/07 Overview: On a 2.5 mg per month prednisone wean Elevated LFTs 06/05/2016 06/05/2016 Vitamin D insufficiency 12/22/201408/30 Overview: November 2014 = 21. See PCP. January 2016 = 36. Taking supplementation during winter months. 2017 - sufficient levels, taking supplement biliary spasm 08/12/2001 01/29/2018 documented as of this encounter (statuses as of 03/02/2024) Immunizations Name Administration Dates Next Due COVID-19 [...] Description 03/02/2024 4:00 PM EDT Imaging Radiology [address] [place] [address] 03/04/2024 7:00 AM EDT [address] Rad[address] [address] 03/12/2024 8:00 AM EDT Office Visit Gastroenterology, Jorge Bellamy [address] [place] [address] [place] [phone] Rosemarie Mayo PA-C [facility] [place] [phone] Scheduled Procedures Name Priority Associated Diagnoses Date/Ti [...] this encounter Medical Devices Implanted Type Area Flattening Press Operator Device Identifier Shelf Expiration Date Model / Serial / Lot Implant Breast Katie [id number] - [id number] Implanted:Qty: 1 on 09/19/2011 at OR [facility] Right: Breast MENTOR CARLIN 02/26/2016 [id number] / [id number] / [id number] documented as of this encounter Advance Directives * Full Code (Latest Code Status on File) Date Activated Date Inactivated Comments 09/19/2011 10:38 AM 09/19/2011 5:20 PM This orde r reflects the patients wishes and were consensually agreed upon. Question Answer Comments Discussion of Advance Directives occurred with: Patient
--- NOTE | 2024-05-02 09:47 | Electrocardiogram Report ---
Test Reason : Blood Pressure : / mmHG Vent. Rate : 061 BPM Atrial Rate : 061 BPM P-R Int : 192 ms QRS Dur : 080 ms QT Int : 394 ms P-R-T Axes : 050 -02 050 degrees QTc Int : 396 ms Normal sinus rhythm Normal ECG No previous ECGs available Confirmed by Raul Berry ([id number]) on 05/02/2024 9:46:54 AM Referred By: REFERRED SELF Confirmed By:Eric Berry
[2024-05-02 09:53] LABS: Basophils # (auto) 0.05 K/uL (0.00-0.20); Basophils % (auto) 1.6 %; Eosinophils # (auto) 0.15 K/uL (0.00-0.50); Eosinophils % (auto) 4.9 %; Hematocrit (blood only) 44.7 % (37.0-47.0); Hemoglobin 15.1 g/dl (12.0-16.0); Lymphocytes # (auto) 1.41 K/uL (1.20-3.40); Lymphocytes % (auto) 45.8 %; Mean Corpuscular Hemoglobin 31.9 pg (25.0-34.0); Mean Corpuscular Hgb Conc 33.8 g/dL (32.0-36.0); Mean Corpuscular Volume 94.3 fL (80.0-100.0); Mean Platelet Volume 10.1 fL (9.4-12.4); Monocytes # (auto) 0.33 K/uL (0.11-0.59); Monocytes % (auto) 10.7 %; Neutrophils # (auto) 1.14 K/uL (1.40-6.50); Platelet Count 250 K/uL (130-400); RDW Coefficient of Variation 11.9 % (11.5-14.5); RDW Standard Deviation 41.7 fL (36.4-46.3); Red Blood Count 4.74 M/uL (4.20-5.40); White Blood Count 3.08 K/ul (4.8-10.8)
[2024-05-02 10:14] LABS: Alanine Aminotransferase 39 U/L (7-52); Albumin Globulin Ratio 1.7 (0.9-2); Alkaline Phosphatase 82 U/L (34-104); Anion Gap 7 (3-11); Aspartate Aminotransferase 46 U/L (13-39); BUN Creatinine Ratio 23.8 (10-20); Bilirubin,Total 0.8 mg/dl (0.2-1.0); Blood Urea Nitrogen 15 mg/dl (6-23); Calcium 10.5 mg/dl (8.6-10.3); Carbon Dioxide 29 mmol/L (21-32); Chloride 99 mmol/L (98-107); Est GFR (African American) 109.1 ml/min; Est GFR (Non-African American) 94.1 ml/min; Globulin 2.9 gm/dl (2.5-4.0); Glucose 98 mg/dl (70-99(Fasting)); Magnesium 2.2 mg/dl (1.7-2.4); Potassium 4.3 mmol/L (3.5-5.1); Sodium 135 mmol/L (136-145); Total Protein 7.9 gm/dl (6.0-8.3)
[2024-05-02 10:18] LABS: INR 0.9 (0.9-1.1); Prothrombin Time 10.2 Seconds (9.0-12.0)
--- NOTE | 2024-05-02 10:18 | XRay Report ---
XR chest 1V portable HISTORY: Dysrhythmia COMPARISON: None. FINDINGS: The lungs are clear. Cardiac silhouette is normal in size. No pleural effusions. No pneumot horax. IMPRESSION: No acute process. ACT 112: Negative or not required by law. Electronically signed by: Adan Newsome M.D. 05/02/2024 10:17 AM
[2024-05-02 10:21] LABS: Troponin I High Sensitivity 2.7 pg/ml (0-14)
[2024-05-02 10:28] LABS: Thyroid Stimulating Hormone 2.016 uIu/ml (0.300-4.500)
[2024-05-02 10:43] LABS: D Dimer 770 ug/L FEU (0-500)
[2024-05-02] MEDS: OPTIRAY 320 125ml IV ONE (11:20)
--- NOTE | 2024-05-02 11:47 | CT Scan Report ---
CHEST CTA for PULMONARY ARTERIES CT DOSE: 248.69 mGy.cm HISTORY: chest pain, +dimer TECHNIQUE: Multiaxial CT images of the chest were performed following the intravenous administration of contrast to evaluate the pulmonary arteries. 3D/Maximal intensity projection images were also obta ined. Sagittal and coronal reformations were also reviewed. A dose lowering technique was utilized a dhering to the principles of ALARA. COMPARISON STUDY: Chest 05/02/2024. FINDINGS: Normal caliber thoracic aorta with no evidence for a dissection. The heart is normal in siz e. No filling defects within the pulmonary arteries to suggest a pulmonary embolus. Limited views of the upper abdomen demonstrate a normal liver and spleen. There is a punctate left renal stone noted. The visualized adrenal glands are unremarkable. Normal thyroid gland and normal esophagus. Abnormal a ppearance to the right breast implant which may represent intracapsular rupture. There is fat strandi ng within the gastrohepatic location with possible thickening of the gastric wall. This is only parti ally imaged on this study. Possible punctate focus of extraluminal gas versus a small gastric diverti culum on image 19. No mediastinal or hilar lymphadenopathy. No pleural or pericardial effusions. No a cute fractures. No suspicious lytic or blastic osseous lesions. A few bibasilar linear densities favo r subsegmental atelectasis. The central airways are patent. No pneumothorax. Mild emphysema. No focal lung consolidations to suggest a pneumonia. No evidence for pulmonary edema. A 4 mm indeterminate pu lmonary nodule within the right lower lobe on image 59. IMPRESSION: 1. No evidence for a pulmonary embolus. 2. There is fat stranding surrounding the proximal stomach with possible gastric wall thickening. Thi s is only partially imaged on this study and therefore not well assessed. There is a punctate focus o f gas within or adjacent to the wall of the proximal stomach which raises the possibility of a focal ulceration versus less likely microperforation. Therefore, follow-up abdomen and pelvis CT with intra venous contrast recommended for further evaluation. 3. Left-sided nephrolithiasis. 4. Abnormal appearance to the right breast implant which they represent intracapsular rupture. 5. A 4 mm indeterminate pulmonary nodule within the right lower lobe. Please refer to below summary of Fleischner criteria recommendations for follow-up of incidental CT n odules Sri Rogers, Guidelines for management of small pulmonary nodules detected on CT scans: A patrizia jacobs from the Fleischner Society, Radiology 237: [phone].) SOLID NODULES Solitary nodule size: <6 mm * Low risk patients: no follow-up needed * high risk patients: optional CT at 12 months Solitary nodule size: 6-8 mm * Low risk patients: follow-up at 6-12 months, then consider further follow-up at 18-24 months * high risk patients: initial follow-up CT at 6-12 months and then at 18-24 months if no change Solitary nodule size: >8 mm * either low or high risk patients - consider follow-up CT at 3 months, and/or CT-PET, and/or biopsy Multiple nodules size: <6 mm * Low risk patients: no routine follow-up * high risk patients: optional CT at 12 months Multiple nodules size: 6-8 mm * Low risk patients: follow-up at 3-6 months, then consider further follow-up at 18-24 months * high risk patients: follow-up at 3-6 months, then at 18-24 months if no change Multiple nodules size: >8 mm * Low risk patients: follow-up at 3-6 months, then consider further follow-up at 18-24 months * high risk patients: follow-up at 3-6 months, then at 18-24 months if no change Note: newly detected indeterminate nodule in persons 35 years of age or older. * Low risk patients: minimal or absent history of smoking and/or other known risk factors * high risk patients: history of smoking or of other known risk factors (e.g. first degree relative with lung cancer, or exposure to asbestos, radon, uranium) * if a nodule up to 8 mm is partly solid or is ground glass further follow-up is required after 24 m onths to exclude possible slow growing adenocarcinoma (ALEXIS) SUBSOLID NODULES Solitary pure ground-glass nodule * nodule size <6 mm - no CT follow-up required * nodule size >=6 mm - follow-up CT at 6-12 months, then every 2 years until 5 years Solitary part-solid nodule * nodule size <6 mm - no CT follow-up required * nodule size >=6 mm - follow-up CT at 3-6 months. If unchanged, and solid component remains <6 mm, then annual follow-up for 5 years Multiple subsolid nodules * nodule size <6 mm - follow-up CT at 3-6 months, consider further follow-up at 2 and 4 years if sta ble * nodule size >=6 mm - follow-up CT at 3-6 months, subsequent management based on the most suspiciou s nodule(s) ACT 112: Negative or not required by law. Electronically signed by: Adan Newsome M.D. 05/02/2024 11:44 AM
--- NOTE | 2024-05-02 12:47 | CT Scan Report ---
ABDOMEN AND PELVIS CT WITHOUT CONTRAST CT DOSE: 332.56 mGy.cm HISTORY: possible perforated gastric ulcer on chest CT TECHNIQUE: Multiaxial CT images of the abdomen and pelvis were performed without contrast. A dose lo wering technique was utilized adhering to the principles of ALARA. COMPARISON STUDY: None. FINDINGS: There is a 4 mm nodule within the right lower lobe on image 4. The left lung base is clear. Old postoperative changes within the proximal left femur. No acute fractures identified. Partially v isualized right breast implant. The liver, gallbladder, spleen, adrenal glands, and kidneys appear un remarkable. Normal pancreas. No hydronephrosis. Normal caliber abdominal aorta. No retroperitoneal or pelvic lymphadenopathy. There is residual contrast within the urinary system and bladder from the re cent CT examination. No definite bladder wall thickening. The uterus and bilateral adnexa are within normal limits. No dilated loops of bowel to suggest an obstruction. Difficult evaluation of the bowel due to the lack of intravenous or oral contrast. The delayed contrasted the recent chest CTA also re sults in suboptimal evaluation. Possible gastric wall thickening which is not well evaluated on this study. A punctate focus of gas again noted within the left upper quadrant on image 38. This is likely intraluminal but difficult to assess on this study. IMPRESSION: 1. Near nondiagnostic evaluation of the stomach due to the lack of intravenous and oral contrast. A p unctate focus of gas described on the same day chest CTA appears to be intraluminal but is difficult to assess on this study. If the patient is complaining of epigastric pain then consider GI consultati on to exclude the less likely possibility of a gastric ulceration/microperforation. 2. Gastric wall thickening which may be due to underdistention. 3. No evidence for a bowel obstruction. ACT 112: Negative or not required by law. Electronically signed by: Adan Newsome M.D. 05/02/2024 12:44 PM
--- NOTE | 2024-05-02 13:58 | Emergency Department Note ---
Impression & Plan Chest pain ED Provider Note NAME: OBED CROWELL AGE: 64 SEX: Female INFORMANT: Patient ED PROVIDER(S): Be Burton MD CHIEF COMPLAINT: Chest pain PLAN: Disposition: Admitted Outpatient prescription management: none Referral: None MEDICAL DECISION MAKING: Patient presented because of chest pain. She was evaluated. Her symptoms resolved without direct intervention. Her ECG did not show any acute ischemia. Chest x-ray was unremarkable. Her cardiac troponin was negative. White blood cell count was minimally low. No anemia. LFTs unremarkable. Patient had a mildly elevated D-dimer. Chest CT imaging was performed and there was no evidence of pulmonary embolism. Radiology questioned on abnormality with the stomach. CT imaging was performed of the abdomen pelvis. They noted some difficulty with interpreting but felt that the air was within the stomach. On reexamination as well as initial examination the patient has no epigastric tenderness to palpation whatsoever and never complained of any epigastric pain. Given the multiple episodes patient is experienced further management in the hospital was felt to be appropriate. Patient was very much in agreement. Cardiac monitoring did not reveal any evidence of dysrhythmia. Consultation with the [facility] hospitalist service. Dr. Diaz requested a surgical consultation based upon the CT findings. Discussed the case with Niharika Alexander PA-C from general surgery. They will evaluate the patient. Patient evaluated in the ER admitted for further management. Care/management discussed with: projects manager Level of care consideration(s): After review of the information above and other included data, I feel the patient requires escalation of care to admission Triage Nursing notes: reviewed and agree them. Vital Signs: reviewed and remarkable for no significant abnormalities Additional History obtained from: none Chronic Medical/Social Conditions affecting care: none Prior/ Outside/ External records reviewed: none Differential Diagnosis: Cardiac ischemia, aortic dissection, pulmonary embolism, pneumothorax, pneumonia, dysrhythmia, pericarditis, myocarditis, esophageal rupture, GERD, cholecystitis, pancreatitis, musculoskeletal, as well as other pathologies. Diagnostics, independently interpreted by me: ECG: Twelve-lead ECG reveals normal sinus rhythm at 61 beats per minute. No evidence of pericarditis, ischemia, ectopy, or dysrhythmia. Cardiac Monitoring: Cardiac monitoring ordered by me: The patient was placed on continuous cardiac monitoring and observed. It revealed a normal sinus rhythm at 63 beats per minute without ectopy or evidence of dysrhythmia. Medical decision rules: none Imaging studies: Chest x-ray. Findings: A chest x-ray was performed and revealed no pneumothorax, effusion, infiltrate, pulmonary edema, free air under the diaphragm, or wide mediastinum. Impression: No acute disease. I refer you to the EMR for further details. HPI: 64 year old Female arrives for evaluation of chest pain. This started this morning and is currently resolved. The patient also notes the following associated symptoms, some shortness of breath and tingling through her chest. She felt presyncopal as well. Patient notes an episode that occurred yesterday but was shorter in duration. Today lasted about 30 minutes. Patient has history of PFO and tachycardia but did not feel her heart race. The patient has taken no medication for relieving factors. Current pain is rated as 0/10. Patient has some residual pressure sensation but the chest pain resolved. Pt denies LOC, headache, fevers, chills, diaphoresis, visual changes, neck pain, chest pain, breathing difficulties, nausea, vomiting, abdominal pain, back pain, melena, hematochezia, urinary symptoms, numbness, weakness, lymphadenopathy, rash, or other complaints. PAST MEDICAL HISTORY: See Below, PFO, tachycardia PAST SURGICAL HISTORY: See Below, SOCIAL HISTORY: See Below, HOME MEDICATIONS: See Below ALLERGIES: See Below VITALS: See Below PHYSICAL EXAMINATION: GENERAL: Awake, alert, well-appearing, in no distress HENT: Normocephalic, atraumatic. Oropharynx unremarkable. EYES: Normal conjunctiva. Sclera non-icteric. NECK: Inspection normal. Non-tender. Supple. No nuchal rigidity. FROM. No masses. RESPIRATORY: Clear to auscultation. No wheezes. No rales. Normal respiratory effort. CARDIAC: Normal rate. Normal rhythm. No murmurs. No rubs. Extremities warm and well perfused. Pulses equal. No JVD. GI: Soft, non-distended. No tenderness to palpation. No rebound or guarding. No masses. RECTAL: Deferred. MUSCULOSKELETAL: Atraumatic. Chest examination reveals no tenderness. The back is symmetrical on inspection without obvious abnormality. There is no CVA tenderness to palpation. No joint edema. LOWER EXTREMITIES: Calves are equal size bilaterally and non-tender. No edema. No discoloration. NEURO: Normal sensorium. No sensory or motor deficits noted. SKIN: No rash or jaundice noted. PROCEDURES: none CRITICAL CARE: none OBSERVATION NOTE: none Past Med/Surg History Problem List (Updated 05/02/24 @ 15:42 by Adeel Diaz MD) History of peptic ulcer disease Abnormal CT of the abdomen Upper abdominal pain Chest pain (Acute) Encounter for pre-operative examination Medical History Valvular heart disease Mild AR, mild to moderate MR, and mild TR noted on 11/2023 stress ECHO Interatrial cardiac shunt Noted on 11/2023 ECHO- reason for upcoming procedure Paroxysmal SVT (supraventricular tachycardia) Tachycardia and PSVT - prescribed metoprolol, has not yet started "wants more information on her heart before she starts the medication" Liver hemangioma - Abdominal ultrasound 12/31/23 showed nonspecific but suspected right hepatic lobe hemangiomameasures 0.6 cm x 0.6 cm x 0.7 cm approximately - Liver MRI (scheduled 01/30/24) Rheumatoid arthritis Hx of gastroesophageal reflux (GERD) History of anemia Depression Migraine ocular migraines Fibromyalgia PMR (polymyalgia rheumatica) Surgical History S/P hardware removal left hip S/P left cataract extraction History of right cataract surgery Nausea and vomiting after administration of anesthetic agent H/O breast implant right breast (never developed " defect") History of open reduction and internal fixation (ORIF) procedure left hip with hardware History of colonoscopy History of tonsillectomy Family History Other No family history of adverse response to anesthesia Social History Smoking Status: Never smoker Second Hand Exposure: No; Do You Dip or Chew Tobacco: No; Hx Alcohol Use: Yes Alcohol type: beer Hx Substance Use: Yes Last Used Substance: Unknown Last Used Substance Other:: early 2022 (had medical card, no longer uses) Preferred Language: Lao Communication Ability: Effective Councilman Required: No Beliefs That Will Affect Care: None Current Living Situation: Spouse Feels Safe at Home: Yes Assistive Devices: Glasses Allergies Allergies Allergy/AdvReac Type Severity Reaction Status Date / Time No Known Allergies Allergy Verified 01/22/24 07:40 Home Meds Home Medications Medication Instructions Recorded Confirmed X-Flame 3 cap PO BID 02/13/21 05/02/24 acyclovir 200 mg capsule 200 mg PO UD PRN Cold Sores 02/13/21 05/02/24 multivitamin 1 tab PO QAM 02/13/21 05/02/24 omega-3 fatty acids 2,000 mg PO QAM 02/13/21 05/02/24 amino acids 1 cap PO QAM 01/07/24 05/02/24 calcium carbonate 600 mg-vitamin 1 tab PO BID 01/07/24 05/02/24 D3 5 mcg (200 unit) tablet coenzyme Q10 100 mg capsule 100 mg PO QAM 01/07/24 05/02/24 (CoQ-10) Topical Hormone Replacement Drops 4 drp topical PM 05/02/24 05/02/24 Previous Rx's Medication Instructions Recorded aspirin 81 mg tablet,delayed 81 mg PO DAILY #90 tabs 01/22/24 release (Adult Low Dose Aspirin) Results & Data (ED) Vital Signs Vital Signs - 24 hr 05/02/24 08:54 05/02/24 08:54 05/02/24 09:16 Temperature 36.6 C Temperature Source Temporal Artery Scan Pulse Rate 61 64 Pulse Rate from SpO2 Sensor Respiratory Rate 18 Blood Pressure 162/83 H Blood Pressure Mean 109 Pulse Oximetry 96 Oxygen Delivery Method Room Air Sepsis Recent Fever Within 48 Hours No Sepsis New/Unexplained Change in Mental Status N/A Sepsis Action Taken by Nursing No Action Required 05/02/24 09:23 05/02/24 10:30 05/02/24 11:00 Temperature Temperature Source Pulse Rate 55 L 57 L Pulse Rate from SpO2 Sensor 55 L Respiratory Rate 16 16 Blood Pressure 124/71 124/72 Blood Pressure Mean 102 92 Pulse Oximetry 93 98 Oxygen Delivery Method Room Air Room Air Room Air Sepsis Recent Fever Within 48 Hours Sepsis New/Unexplained Change in Mental Status Sepsis Action Taken by Nursing 05/02/24 11:48 05/02/24 12:06 05/02/24 12:12 Temperature Temperature Source Pulse Rate 53 L 57 L 56 L Pulse Rate from SpO2 Sensor 52 L 56 L Respiratory Rate 13 17 12 Blood Pressure Blood Pressure Mean Pulse Oximetry 99 98 Oxygen Delivery Method Sepsis Recent Fever Within 48 Hours Sepsis New/Unexplained Change in Mental Status Sepsis Action Taken by Nursing 05/02/24 12:21 05/02/24 12:48 05/02/24 12:54 Temperature Temperature Source Pulse Rate 58 L 60 59 L Pulse Rate from SpO2 Sensor 58 L 59 L 59 L Respiratory Rate 17 21 13 Blood Pressure Blood Pressure Mean Pulse Oximetry 99 98 100 Oxygen Delivery Method Sepsis Recent Fever Within 48 Hours Sepsis New/Unexplained Change in Mental Status Sepsis Action Taken by Nursing 05/02/24 13:00 05/02/24 13:12 05/02/24 13:22 Temperature Temperature Source Pulse Rate 59 L 64 61 Pulse Rate from SpO2 Sensor 60 63 Respiratory Rate 12 17 Blood Pressure Blood Pressure Mean Pulse Oximetry 98 100 Oxygen Delivery Method Sepsis Recent Fever Within 48 Hours Sepsis New/Unexplained Change in Mental Status Sepsis Action Taken by Nursing 05/02/24 13:24 05/02/24 14:02 05/02/24 14:30 Temperature Temperature Source Pulse Rate 63 54 L 57 L Pulse Rate from SpO2 Sensor 64 54 L 56 L Respiratory Rate 17 14 16 Blood Pressure 130/87 131/69 Blood Pressure Mean 91 89 Pulse Oximetry 98 100 98 Oxygen Delivery Method Sepsis Recent Fever Within 48 Hours Sepsis New/Unexplained Change in Mental Status Sepsis Action Taken by Nursing Laboratory Data 05/02/24 09:18 05/02/24 09:18 Lab Results 05/02/24 Range/Units 09:18 WBC 3.08 L (4.8-10.8) K/ul RBC 4.74 (4.20-5.40) M/uL Hgb 15.1 (12.0-16.0) g/dl Hct 44.7 (37.0-47.0) % MCV 94.3 (80.0-100.0) fL MCH 31.9 (25.0-34.0) pg MCHC 33.8 (32.0-36.0) g/dL RDW Std Deviation 41.7 (36.4-46.3) fL RDW Coeff of Lizzie 11.9 (11.5-14.5) % Plt Count 250 (130-400) K/uL MPV 10.1 (9.4-12.4) fL Immature Gran % (Auto) 0.0 % Neut % (Auto) 37.0 % Lymph % (Auto) 45.8 % Free[place] % (Auto) 10.7 % Eos % (Auto) 4.9 % Baso % (Auto) 1.6 % Neut # (Auto) 1.14 L (1.40-6.50) K/uL Lymph # (Auto) 1.41 (1.20-3.40) K/uL Free[place] # (Auto) 0.33 (0.11-0.59) K/uL Eos # (Auto) 0.15 (0.00-0.50) K/uL Baso # (Auto) 0.05 (0.00-0.20) K/uL Immature Gran # (Auto) 0.00 L (0.01-0.20) K/uL PT 10.2 (9.0-12.0) Seconds INR 0.9 (0.9-1.1) D-Dimer 770 H* (0-500) ug/L FEU Sodium 135 L (136-145) mmol/L Potassium 4.3 (3.5-5.1) mmol/L Chloride 99 (98-107) mmol/L Carbon Dioxide 29 (21-32) mmol/L Anion Gap 7 (3-11) BUN 15 (6-23) mg/dl Creatinine 0.63 (0.6-1.2) mg/dl Est Cr Clr Drug Dosing Not Reportable Est GFR ( Amer) 109.1 ml/min Est GFR (Non-Af Amer) 94.1 ml/min BUN/Creatinine Ratio 23.8 H (10-20) Glucose 98 (70-99(Fasting)) mg/dl Calcium 10.5 H (8.6-10.3) mg/dl Magnesium 2.2 (1.7-2.4) mg/dl Total Bilirubin 0.8 (0.2-1.0) mg/dl AST 46 H (13-39) U/L ALT 39 (7-52) U/L Alkaline Phosphatase 82 (34-104) U/L Troponin I High Sens 2.7 (0-14) pg/ml Total Protein 7.9 (6.0-8.3) gm/dl Albumin 5.0 (3.4-5.0) gm/dl Globulin 2.9 (2.5-4.0) gm/dl Albumin/Globulin Ratio 1.7 (0.9-2) TSH 2.016 (0.300-4.500) uIu/ml Administered Medications Discontinued Medications Ioversol (Optiray 320 125ml) 112 ml IV ONCE ONE Stop: 05/02/24 11:21 Last Admin: 05/02/24 11:20 Dose: 112 ml Documented By: ANTONINO Imaging Data Radiologist's Impression: Chest X-Ray 05/02/24 09:31 XR chest 1V portable HISTORY: Dysrhythmia COMPARISON: None. FINDINGS: The lungs are clear. Cardiac silhouette is normal in size. No pleural effusions. No pneumothorax. IMPRESSION: No acute process. ACT 112: Negative or not required by law. Electronically signed by: Adan Newsome M.D. 05/02/2024 10:17 AM Chest CTA 05/02/24 11:02 CHEST CTA for PULMONARY ARTERIES CT DOSE: 248.69 mGy.cm HISTORY: chest pain, +dimer TECHNIQUE: Multiaxial CT images of the chest were performed following the intravenous administration of contrast to evaluate the pulmonary arteries. 3D/Maximal intensity projection images were also obtained. Sagittal and coronal reformations were also reviewed. A dose lowering technique was utilized adhering to the principles of ALARA. COMPARISON STUDY: Chest 05/02/2024. FINDINGS: Normal caliber thoracic aorta with no evidence for a dissection. The heart is normal in size. No filling defects within the pulmonary arteries to suggest a pulmonary embolus. Limited views of the upper abdomen demonstrate a normal liver and spleen. There is a punctate left renal stone noted. The visualized adrenal glands are unremarkable. Normal thyroid gland and normal esophagus. Abnormal appearance to the right breast implant which may represent intracapsular rupture. There is fat stranding within the gastrohepatic location with possible thickening of the gastric wall. This is only partially imaged on this study. Possible punctate focus of extraluminal gas versus a small gastric diverticulum on image 19. No mediastinal or hilar lymphadenopathy. No pleural or pericardial effusions. No acute fractures. No suspicious lytic or blastic osseous lesions. A few bibasilar linear densities favor subsegmental atelectasis. The central airways are patent. No pneumothorax. Mild emphysema. No focal lung consolidations to suggest a pneumonia. No evidence for pulmonary edema. A 4 mm indeterminate pulmonary nodule within the right lower lobe on image 59. IMPRESSION: 1. No evidence for a pulmonary embolus. 2. There is fat stranding surrounding the proximal stomach with possible gastric wall thickening. This is only partially imaged on this study and therefore not well assessed. There is a punctate focus of gas within or adjacent to the wall of the proximal stomach which raises the possibility of a focal ulceration versus less likely microperforation. Therefore, follow-up abdomen and pelvis CT with intravenous contrast recommended for further evaluation. 3. Left-sided nephrolithiasis. 4. Abnormal appearance to the right breast implant which they represent intracapsular rupture. 5. A 4 mm indeterminate pulmonary nodule within the right lower lobe. Please refer to below summary of Fleischner criteria recommendations for follow- up of incidental CT nodules (Glory Rogers, Guidelines for management of small pulmonary nodules detected on CT scans: A statement from the Fleischner Society, Radiology 237: [phone].) SOLID NODULES Solitary nodule size: <6 mm * Low risk patients: no follow-up needed * high risk patients: optional CT at 12 months Solitary nodule size: 6-8 mm * Low risk patients: follow-up at 6-12 months, then consider further follow-up at 18-24 months * high risk patients: initial follow-up CT at 6-12 months and then at 18-24 months if no change Solitary nodule size: >8 mm * either low or high risk patients - consider follow-up CT at 3 months, and/or CT-PET, and/or biopsy Multiple nodules size: <6 mm * Low risk patients: no routine follow-up * high risk patients: optional CT at 12 months Multiple nodules size: 6-8 mm * Low risk patients: follow-up at 3-6 months, then consider further follow-up at 18-24 months * high risk patients: follow-up at 3-6 months, then at 18-24 months if no change Multiple nodules size: >8 mm * Low risk patients: follow-up at 3-6 months, then consider further follow-up at 18-24 months * high risk patients: follow-up at 3-6 months, then at 18-24 months if no change Note: newly detected indeterminate nodule in persons 35 years of age or older. * Low risk patients: minimal or absent history of smoking and/or other known risk factors * high risk patients: history of smoking or of other known risk factors (e.g. first degree relative with lung cancer, or exposure to asbestos, radon, uranium) * if a nodule up to 8 mm is partly solid or is ground glass further follow-up is required after 24 months to exclude possible slow growing adenocarcinoma (ALEXIS) SUBSOLID NODULES Solitary pure ground-glass nodule * nodule size <6 mm - no CT follow-up required * nodule size >=6 mm - follow-up CT at 6-12 months, then every 2 years until 5 years Solitary part-solid nodule * nodule size <6 mm - no CT follow-up required * nodule size >=6 mm - follow-up CT at 3-6 months. If unchanged, and solid component remains <6 mm, then annual follow-up for 5 years Multiple subsolid nodules * nodule size <6 mm - follow-up CT at 3-6 months, consider further follow-up at 2 and 4 years if stable * nodule size >=6 mm - follow-up CT at 3-6 months, subsequent management based on the most suspicious nodule(s) ACT 112: Negative or not required by law. Electronically signed by: Adan Newsome M.D. 05/02/2024 11:44 AM Abdomen/Pelvis CT 05/02/24 12:[address] WITHOUT CONTRAST CT DOSE: 332.56 mGy.cm HISTORY: possible perforated gastric ulcer on chest CT TECHNIQUE: Multiaxial CT images of the abdomen and pelvis were performed without contrast. A dose lowering technique was utilized adhering to the principles of ALARA. COMPARISON STUDY: None. FINDINGS: There is a 4 mm nodule within the right lower lobe on image 4. The left lung base is clear. Old postoperative changes within the proximal left femur. No acute fractures identified. Partially visualized right breast implant. The liver, gallbladder, spleen, adrenal glands, and kidneys appear unremarkable. Normal pancreas. No hydronephrosis. Normal caliber abdominal aorta. No retroperitoneal or pelvic lymphadenopathy. There is residual contrast within the urinary system and bladder from the recent CT examination. No definite bladder wall thickening. The uterus and bilateral adnexa are within normal limits. No dilated loops of bowel to suggest an obstruction. Difficult evaluation of the bowel due to the lack of intravenous or oral contrast. The delayed contrasted the recent chest CTA also results in suboptimal evaluation. Possible gastric wall thickening which is not well evaluated on this study. A punctate focus of gas again noted within the left upper quadrant on image 38. This is likely intraluminal but difficult to assess on this study. IMPRESSION: 1. Near nondiagnostic evaluation of the stomach due to the lack of intravenous and oral contrast. A punctate focus of gas described on the same day chest CTA appears to be intraluminal but is difficult to assess on this study. If the patient is complaining of epigastric pain then consider GI consultation to exclude the less likely possibility of a gastric ulceration/microperforation. 2. Gastric wall thickening which may be due to underdistention. 3. No evidence for a bowel obstruction. ACT 112: Negative or not required by law. Electronically signed by: Adan Newsome M.D. 05/02/2024 12:44 PM Discharge Plan Visit Data Chief Complaint: Cardiac Assessment Stated Complaint: CHEST PAIN, SHORTNESS OF BREATH, LIGHTHEADED ED Provider: Be Burton Discharge Problem: Chest pain Forms Stand Alone Forms: [facility] Prescriptions Prescriptions: No Action multivitamin Tablet 1 tab PO QAM acyclovir 200 mg Capsule 200 mg PO UD PRN (Reason: Cold Sores) omega-3 fatty acids Capsule 2,000 mg PO QAM X-Flame 3 cap PO BID calcium carbonate-vitamin D3 600 mg-5 mcg (200 unit) Tablet 1 tab PO BID amino acids Capsule 1 cap PO QAM coenzyme Q10 [CoQ-10] 100 mg Capsule 100 mg PO QAM aspirin [Adult Low Dose Aspirin] 81 mg tablet,delayed release (DR/EC) 81 mg PO DAILY Qty: 90 3RF Topical Hormone Replacement Drops 4 drp topical PM Referrals Referrals: Armando Cao DO [Primary Care Provider] -
[2024-05-02] MEDS ORDERED: PANTOPRAZOLE BOLUS/DRIP IV STA (15:33)
--- NOTE | 2024-05-02 15:52 | History & Physical Report ---
Date of Service May 02, 2024 Assessment & Plan (1) Chest pain: (2) Upper abdominal pain: (3) Abnormal CT of the abdomen: (4) History of peptic ulcer disease: Plan 64 year old female with h/o peptic ulcer, PFO, PVCs who presented to the ED with an episode of chest/upper abdominal pain. CTA chest- 1. No evidence for a pulmonary embolus. 2. There is fat stranding surrounding the proximal stomach with possible gastric wall thickening. This is only partially imaged on this study and therefore not well assessed. There is a punctate focus of gas within or adjacent to the wall of the proximal stomach which raises the possibility of a focal ulceration versus less likely microperforation. Therefore, follow-up abdomen and pelvis CT with intravenous contrast recommended for further evaluation. 3. Left-sided nephrolithiasis. 4. Abnormal appearance to the right breast implant which they represent intracapsular rupture. 5. A 4 mm indeterminate pulmonary nodule within the right lower lob CT A/P without contrast 1. Near nondiagnostic evaluation of the stomach due to the lack of intravenous and oral contrast. A punctate focus of gas described on the same day chest CTA appears to be intraluminal but is difficult to assess on this study. If the patient is complaining of epigastric pain then consider GI consultation to exclude the less likely possibility of a gastric ulceration/microperforation. 2. Gastric wall thickening which may be due to underdistention. 3. No evidence for a bowel obstruction. Chest/upper abdominal pain- currently symptoms improved. Recent cardiac work up including stress test and CT cardiac calcium score was negative. Trop negative, EKG unremarkable. D dimer elevated but no PE on CT chest. With her history of PUD, aspirin use, intermittent NSAID use and fasting along with the CT findings, concern for GI etiology rather than cardiac. Seen by surgical team who is ordering contrast study to clarify but they will be on standby if things get wor se. Will start on iv protonix drip, npo with sips/meds. Will consult GI and surgery. Might need EGD. Will trend troponin and monitor on tele for completeness. Hold aspirin for now. H/o PUD PFO/PVCs- follows Dr Cook. Mild hypercalcemia- gentle hydration, recheck in am. DVT ppx- SCD, ambulation Full code Dispo- medsurg tele Time spent- approx 60 mins History of Present Illness Chief Complaint: chest/upper abdominal pain Primary Care Provider: Armando Cao DO 64 year old female with h/o peptic ulcer, PFO, PVCs who presented to the ED with an episode of chest/upper abdominal pain. Had 4 episodes so far, each in February, March, yesterday and today. She describes it as chest pressure sensation that goes from her chest down to the belly which would last about 5-10 minutes and resolve completely and sometimes associated with bilateral hand tingling. No N/V. No diaphoresis, SOB, fever or chills. She had cardiac work up with Dr Cook few months back with negative stress test, calcium score. She is pretty active physically and denies any symptoms with her physical activities. She does not smoke. She drinks 1 beer 2-3 times a week. Her only medication is baby aspirin. She does have a history of peptic ulcer in and was on PPI for a year. She currently does not have any heart burn symptoms and does not take any tums or PPI. She however takes NSAIDs couple times a week for her pain. She fasts for about 14 hours daily. Currently, she feels much better, her pain has significantly improved, and now has only a mild pain in her epigastrium/left upper quadrant and her tingling have essentially resolved. Allergies Allergy/AdvReac Type Severity Reaction Status Date / Time No Known Allergies Allergy Verified 01/22/24 07:40 Home Medications Medication Instructions Recorded Confirmed Type X-Flame 3 cap PO BID 02/13/21 05/02/24 History acyclovir 200 mg capsule 200 mg PO UD PRN Cold Sores 02/13/21 05/02/24 History multivitamin 1 tab PO QAM 02/13/21 05/02/24 History omega-3 fatty acids 2,000 mg PO QAM 02/13/21 05/02/24 History amino acids 1 cap PO QAM 01/07/24 05/02/24 History calcium carbonate 600 mg-vitamin 1 tab PO BID 01/07/24 05/02/24 History D3 5 mcg (200 unit) tablet coenzyme Q10 100 mg capsule 100 mg PO QAM 01/07/24 05/02/24 History (CoQ-10) aspirin 81 mg tablet,delayed 81 mg PO DAILY #90 tabs 01/22/24 05/02/24 Rx release (Adult Low Dose Aspirin) Topical Hormone Replacement Drops 4 drp topical PM 05/02/24 05/02/24 History Past Med/Surg History Problem List (Updated 05/02/24 @ 15:42 by Adeel Diaz MD) History of peptic ulcer disease Abnormal CT of the abdomen Upper abdominal pain Chest pain (Acute) Encounter for pre-operative examination Medical History Valvular heart disease Mild AR, mild to moderate MR, and mild TR noted on 11/2023 stress ECHO Interatrial cardiac shunt Noted on 11/2023 ECHO- reason for upcoming procedure Paroxysmal SVT (supraventricular tachycardia) Tachycardia and PSVT - prescribed metoprolol, has not yet started "wants more information on her heart before she starts the medication" Liver hemangioma - Abdominal ultrasound 12/31/23 showed nonspecific but suspected right hepatic lobe hemangiomameasures 0.6 cm x 0.6 cm x 0.7 cm approximately - Liver MRI (scheduled 01/30/24) Rheumatoid arthritis Hx of gastroesophageal reflux (GERD) History of anemia Depression Migraine ocular migraines Fibromyalgia PMR (polymyalgia rheumatica) Surgical History S/P hardware removal left hip S/P left cataract extraction History of right cataract surgery Nausea and vomiting after administration of anesthetic agent H/O breast implant right breast (never developed " defect") History of open reduction and internal fixation (ORIF) procedure left hip with hardware History of colonoscopy History of tonsillectomy Family History Other No family history of adverse response to anesthesia Social History Smoking Status: Never smoker Second Hand Exposure: No; Do You Dip or Chew Tobacco: No; Hx Alcohol Use: Yes Alcohol type: beer Hx Substance Use: Yes Last Used Substance: Unknown Last Used Substance Other:: early 2022 (had medical card, no longer uses) Preferred Language: French Communication Ability: Effective Medical Esthetician Required: No Beliefs That Will Affect Care: None Current Living Situation: Spouse Feels Safe at Home: Yes Assistive Devices: Glasses Review of Systems Review of Systems: All systems reviewed & are unremarkable except as noted in Subjective Physical Exam Physical Exam: General: Lying comfortably in bed, not in distress, on room air HEENT: EOMI, CHRISSIE, MMM Chest: Clear breath sounds bilaterally, no wheezes or crackles CVS: Regular rate and rhythm, normal heart sounds, no murmur Abdomen: Soft, mild tenderness, not distended, normal bowel sounds Neuro: Awake, alert, oriented, conversing well, non focal Extremities: No cyanosis, clubbing or edema Psych: Calm, cooperative, pleasant Results & Data Results & Data Vital Signs (Past 12 Hours) Vital Signs Temp Pulse Resp BP Pulse Ox O2 Del Method 05/02/24 14:30 57 L 16 131/69 98 05/02/24 14:02 54 L 14 130/87 100 05/02/24 13:24 63 17 98 05/02/24 13:22 61 05/02/24 13:12 64 17 100 05/02/24 13:00 59 L 12 98 05/02/24 12:54 59 L 13 100 05/02/24 12:48 60 21 98 05/02/24 12:21 58 L 17 99 05/02/24 12:12 56 L 12 05/02/24 12:06 57 L 17 98 05/02/24 11:48 53 L 13 99 05/02/24 11:00 57 L 16 124/72 98 Room Air 05/02/24 10:30 55 L 16 124/71 93 Room Air 05/02/24 09:23 Room Air 05/02/24 09:16 64 05/02/24 08:54 Room Air 05/02/24 08:54 36.6 C 61 18 162/83 H 96 Laboratory Results Short CBC 05/02/24 Range/Units 09:18 WBC 3.08 L (4.8-10.8) K/ul Hgb 15.1 (12.0-16.0) g/dl Hct 44.7 (37.0-47.0) % Plt Count 250 (130-400) K/uL BMP 05/02/24 09:18 Sodium 135 L Potassium 4.3 Chloride 99 Carbon Dioxide 29 BUN 15 Creatinine 0.63 Glucose 98 Calcium 10.5 H Liver Function 05/02/24 Range/Units 09:18 Total Bilirubin 0.8 (0.2-1.0) mg/dl AST 46 H (13-39) U/L ALT 39 (7-52) U/L Alkaline Phosphatase 82 (34-104) U/L Albumin 5.0 (3.4-5.0) gm/dl Diagnostic Findings Chest X-Ray 05/02/24 09:31 XR chest 1V portable HISTORY: Dysrhythmia COMPARISON: None. FINDINGS: The lungs are clear. Cardiac silhouette is normal in size. No pleural effusions. No pneumothorax. IMPRESSION: No acute process. ACT 112: Negative or not required by law. Electronically signed by: Adan Newsome M.D. 05/02/2024 10:17 AM Chest CTA 05/02/24 11:02 CHEST CTA for PULMONARY ARTERIES CT DOSE: 248.69 mGy.cm HISTORY: chest pain, +dimer TECHNIQUE: Multiaxial CT images of the chest were performed following the intravenous administration of contrast to evaluate the pulmonary arteries. 3D/Maximal intensity projection images were also obtained. Sagittal and coronal reformations were also reviewed. A dose lowering technique was utilized adhering to the principles of ALARA. COMPARISON STUDY: Chest 05/02/2024. FINDINGS: Normal caliber thoracic aorta with no evidence for a dissection. The heart is normal in size. No filling defects within the pulmonary arteries to suggest a pulmonary embolus. Limited views of the upper abdomen demonstrate a normal liver and spleen. There is a punctate left renal stone noted. The visualized adrenal glands are unremarkable. Normal thyroid gland and normal esophagus. Abnormal appearance to the right breast implant which may represent intracapsular rupture. There is fat stranding within the gastrohepatic location with possible thickening of the gastric wall. This is only partially imaged on this study. Possible punctate focus of extraluminal gas versus a small gastric diverticulum on image 19. No mediastinal or hilar lymphadenopathy. No pleural or pericardial effusions. No acute fractures. No suspicious lytic or blastic osseous lesions. A few bibasilar linear densities favor subsegmental atelectasis. The central airways are patent. No pneumothorax. Mild emphysema. No focal lung consolidations to suggest a pneumonia. No evidence for pulmonary edema. A 4 mm indeterminate pulmonary nodule within the right lower lobe on image 59. IMPRESSION: 1. No evidence for a pulmonary embolus. 2. There is fat stranding surrounding the proximal stomach with possible gastric wall thickening. This is only partially imaged on this study and therefore not well assessed. There is a punctate focus of gas within or adjacent to the wall of the proximal stomach which raises the possibility of a focal ulceration versus less likely microperforation. Therefore, follow-up abdomen and pelvis CT with intravenous contrast recommended for further evaluation. 3. Left-sided nephrolithiasis. 4. Abnormal appearance to the right breast implant which they represent intracapsular rupture. 5. A 4 mm indeterminate pulmonary nodule within the right lower lobe. Please refer to below summary of Fleischner criteria recommendations for follow- up of incidental CT nodules (Glory Rogers, Guidelines for management of small pulmonary nodules detected on CT scans: A statement from the Fleischner Society, Radiology 237: [phone].) SOLID NODULES Solitary nodule size: <6 mm * Low risk patients: no follow-up needed * high risk patients: optional CT at 12 months Solitary nodule size: 6-8 mm * Low risk patients: follow-up at 6-12 months, then consider further follow-up at 18-24 months * high risk patients: initial follow-up CT at 6-12 months and then at 18-24 months if no change Solitary nodule size: >8 mm * either low or high risk patients - consider follow-up CT at 3 months, and/or CT-PET, and/or biopsy Multiple nodules size: <6 mm * Low risk patients: no routine follow-up * high risk patients: optional CT at 12 months Multiple nodules size: 6-8 mm * Low risk patients: follow-up at 3-6 months, then consider further follow-up at 18-24 months * high risk patients: follow-up at 3-6 months, then at 18-24 months if no change Multiple nodules size: >8 mm * Low risk patients: follow-up at 3-6 months, then consider further follow-up at 18-24 months * high risk patients: follow-up at 3-6 months, then at 18-24 months if no change Note: newly detected indeterminate nodule in persons 35 years of age or older. * Low risk patients: minimal or absent history of smoking and/or other known risk factors * high risk patients: history of smoking or of other known risk factors (e.g. first degree relative with lung cancer, or exposure to asbestos, radon, uranium) * if a nodule up to 8 mm is partly solid or is ground glass further follow-up is required after 24 months to exclude possible slow growing adenocarcinoma (ALEXIS) SUBSOLID NODULES Solitary pure ground-glass nodule * nodule size <6 mm - no CT follow-up required * nodule size >=6 mm - follow-up CT at 6-12 months, then every 2 years until 5 years Solitary part-solid nodule * nodule size <6 mm - no CT follow-up required * nodule size >=6 mm - follow-up CT at 3-6 months. If unchanged, and solid component remains <6 mm, then annual follow-up for 5 years Multiple subsolid nodules * nodule size <6 mm - follow-up CT at 3-6 months, consider further follow-up at 2 and 4 years if stable * nodule size >=6 mm - follow-up CT at 3-6 months, subsequent management based on the most suspicious nodule(s) ACT 112: Negative or not required by law. Electronically signed by: Adan Newsome M.D. 05/02/2024 11:44 AM Abdomen/Pelvis CT 05/02/24 12:[address] WITHOUT CONTRAST CT DOSE: 332.56 mGy.cm HISTORY: possible perforated gastric ulcer on chest CT TECHNIQUE: Multiaxial CT images of the abdomen and pelvis were performed without contrast. A dose lowering technique was utilized adhering to the principles of ALARA. COMPARISON STUDY: None. FINDINGS: There is a 4 mm nodule within the right lower lobe on image 4. The left lung base is clear. Old postoperative changes within the proximal left femur. No acute fractures identified. Partially visualized right breast implant. The liver, gallbladder, spleen, adrenal glands, and kidneys appear unremarkable. Normal pancreas. No hydronephrosis. Normal caliber abdominal aorta. No retroperitoneal or pelvic lymphadenopathy. There is residual contrast within the urinary system and bladder from the recent CT examination. No definite bladder wall thickening. The uterus and bilateral adnexa are within normal limits. No dilated loops of bowel to suggest an obstruction. Difficult evaluation of the bowel due to the lack of intravenous or oral contrast. The delayed contrasted the recent chest CTA also results in suboptimal evaluation. Possible gastric wall thickening which is not well evaluated on this study. A punctate focus of gas again noted within the left upper quadrant on image 38. This is likely intraluminal but difficult to assess on this study. IMPRESSION: 1. Near nondiagnostic evaluation of the stomach due to the lack of intravenous and oral contrast. A punctate focus of gas described on the same day chest CTA appears to be intraluminal but is difficult to assess on this study. If the patient is complaining of epigastric pain then consider GI consultation to exclude the less likely possibility of a gastric ulceration/microperforation. 2. Gastric wall thickening which may be due to underdistention. 3. No evidence for a bowel obstruction. ACT 112: Negative or not required by law. Electronically signed by: Adan Newsome M.D. 05/02/2024 12:44 PM
--- NOTE | 2024-05-02 15:56 | Surgery Consultation ---
Date of Consultation May 02, 2024 Assessment & Plan (1) History of peptic ulcer disease: This is a 64yF with a PMH of peptic ulcer disease who reports to the [facility] ED on 05/02/24 with complaints of chest pain, SOB, and tingling down her arms. She was concerned for a cardiac etiology and came to the ER for further evaluation. A chest CTA was performed that ruled out PE and showed a partially imaged stomach with fat stranding and possible gastric wall thickening with a punctate focus of gas within or adjacent to the wall of the proximal stomach which raises the possibility of a focal ulceration versus less likely microperforation. It was recommended a CT a/p be obtained, which unfortunately was performed without any contrast that could not definitively rule out gastric ulcer vs. microperforation given lack of contrast. She does have a history of gastric ulcer dating back to the 1980s, uses nsaids 1-2x/week, and intermittently fasts. Labs are reassuring with a normal WBC of 3, Hbg 15, Cr 0.6. D-dimer [address] chest to rule out PE. Per ER/medicine cardiac workup has thus far returned negative. Vitals are stable. On exam patient is resting comfortably and in no distress. Abdomen soft, non distended, with some mild discomfort elicited across the bilateral upper abdomen. Likelihood is low for perforation, but I will obtain a CT a/p with oral contrast to evaluate it better. Can consider GI consult if ongoing concern, will likely rec EGD at some point given concern for current ulcer and history of peptic dz, not currently on home PPI at present. Medicine will admit, keep npo until perf ruled out. If imaging negative can have diet from our standpoint. No plans for surgical intervention indicated at this time. Supervising Physician Co-Signing Physician Notes pnt d/w Niharika Alexander, labs and imaging reviewed, agree with above. Came in w/ chest pain, ct chest showed some inflammation of gastric wall, ct abd/pel without oral or new iv contrast showed likely intraluminal air in stomach, but couldn't rule out contained perforation. minimal abd ttp, wbc normal. CT personally reviewed and intrepreted personally, do not think this represents perforation. Will obtain ct abd/pel w/ oral and iv contrast. Admit to medicine. History of Present Illness History of Present Illness This is a 64yF with a PMH of peptic ulcer disease who reports to the [facility] ED on 05/02/24 with complaints of chest pain, SOB, and tingling down her arms. She was concerned for a cardiac etiology and came to the ER for further evaluation. A Chest CTA was performed that showed a partially imaged stomach with fat stranding and possible gastric wall thickening with a punctate focus of gas within or adjacent to the wall of the proximal stomach which raises the possibility of a focal ulceration versus less likely microperforation. It was recommended a CT a/p be obtained, which unfortunately was performed without any contrast that could not rule out gastric ulcer vs. microperforation given lack of contrast. The patient denies any abdominal pain at rest. She said she lives a healthy lifestyle and fasts 14 hours during the day. Hikes regularly. Takes advil maybe 1-2x/ week on occasion for back pain. She is a non smoker. Does have history of a gastric ulcer dating back to 1980s which was founded by scope and she was on ppi for some time afterwards but is not on any antacids now. Has been having regular bowel function. No prior surgery on abdomen. Allergies Allergy/AdvReac Type Severity Reaction Status Date / Time No Known Allergies Allergy Verified 01/22/24 07:40 Home Medications Medication Instructions Recorded Confirmed Type X-Flame 3 cap PO BID 02/13/21 05/02/24 History acyclovir 200 mg capsule 200 mg PO UD PRN Cold Sores 02/13/21 05/02/24 History multivitamin 1 tab PO QAM 02/13/21 05/02/24 History omega-3 fatty acids 2,000 mg PO QAM 02/13/21 05/02/24 History amino acids 1 cap PO QAM 01/07/24 05/02/24 History calcium carbonate 600 mg-vitamin 1 tab PO BID 01/07/24 05/02/24 History D3 5 mcg (200 unit) tablet coenzyme Q10 100 mg capsule 100 mg PO QAM 01/07/24 05/02/24 History (CoQ-10) aspirin 81 mg tablet,delayed 81 mg PO DAILY #90 tabs 01/22/24 05/02/24 Rx release (Adult Low Dose Aspirin) Topical Hormone Replacement Drops 4 drp topical PM 05/02/24 05/02/24 History Patient History Medical History Valvular heart disease Mild AR, mild to moderate MR, and mild TR noted on 11/2023 stress ECHO Interatrial cardiac shunt Noted on 11/2023 ECHO- reason for upcoming procedure Paroxysmal SVT (supraventricular tachycardia) Tachycardia and PSVT - prescribed metoprolol, has not yet started "wants more information on her heart before she starts the medication" Liver hemangioma - Abdominal ultrasound 12/31/23 showed nonspecific but suspected right hepatic lobe hemangiomameasures 0.6 cm x 0.6 cm x 0.7 cm approximately - Liver MRI (scheduled 01/30/24) Rheumatoid arthritis Hx of gastroesophageal reflux (GERD) History of anemia Depression Migraine ocular migraines Fibromyalgia PMR (polymyalgia rheumatica) Surgical History S/P hardware removal left hip S/P left cataract extraction History of right cataract surgery Nausea and vomiting after administration of anesthetic agent H/O breast implant right breast (never developed " defect") History of open reduction and internal fixation (ORIF) procedure left hip with hardware History of colonoscopy History of tonsillectomy Family History Other No family history of adverse response to anesthesia Social History Smoking Status: Never smoker Second Hand Exposure: No; Do You Dip or Chew Tobacco: No; Hx Alcohol Use: Yes Alcohol type: beer Hx Substance Use: Yes Last Used Substance: Unknown Last Used Substance Other:: early 2022 (had medical card, no longer uses) Preferred Language: [place]ijani Communication Ability: Effective Crepe Sole Scourer Required: No Beliefs That Will Affect Care: None Current Living Situation: Spouse Feels Safe at Home: Yes Assistive Devices: Glasses Review of Systems Constitutional: no fever and no chills Respiratory: + dyspnea Cardiovascular: + chest pain Gastrointestinal: no abdominal pain, no nausea, no vomiting and no change in bowel habits Physical Exam Physical Exam: awake/alert, pleasant. no distress Constitutional: well developed and well nourished; no acute distress Respiratory: normal respiratory effort Gastrointestinal (Abdomen): Inspection/Auscultation: abdomen not distended Percussion/Palpation: + abdomen tender (some discomfort to deep palpation across upper abdomen ) and abdomen soft Results & Data Vital Signs (Past 12 Hours) Vital Signs Temp Pulse Resp BP Pulse Ox O2 Del Method 05/02/24 14:30 57 L 16 131/69 98 05/02/24 14:02 54 L 14 130/87 100 05/02/24 13:24 63 17 98 05/02/24 13:22 61 05/02/24 13:12 64 17 100 05/02/24 13:00 59 L 12 98 05/02/24 12:54 59 L 13 100 05/02/24 12:48 60 21 98 05/02/24 12:21 58 L 17 99 05/02/24 12:12 56 L 12 05/02/24 12:06 57 L 17 98 05/02/24 11:48 53 L 13 99 05/02/24 11:00 57 L 16 124/72 98 Room Air 05/02/24 10:30 55 L 16 124/71 93 Room Air 05/02/24 09:23 Room Air 05/02/24 09:16 64 05/02/24 08:54 Room Air 05/02/24 08:54 97.9 F 61 18 162/83 H 96 Diagnostic Findings CHEST CTA for PULMONARY ARTERIES CT DOSE: 248.69 mGy.cm HISTORY: chest pain, +dimer TECHNIQUE: Multiaxial CT images of the chest were performed following the intravenous administration of contrast to evaluate the pulmonary arteries. 3D/Maximal intensity projection images were also obtained. Sagittal and coronal reformations were also reviewed. A dose lowering technique was utilized adhering to the principles of ALARA. COMPARISON STUDY: Chest 05/02/2024. FINDINGS: Normal caliber thoracic aorta with no evidence for a dissection. The heart is normal in size. No filling defects within the pulmonary arteries to suggest a pulmonary embolus. Limited views of the upper abdomen demonstrate a normal liver and spleen. There is a punctate left renal stone noted. The visualized adrenal glands are unremarkable. Normal thyroid gland and normal esophagus. Abnormal appearance to the right breast implant which may represent intracapsular rupture. There is fat stranding within the gastrohepatic location with possible thickening of the gastric wall. This is only partially imaged on this study. Possible punctate focus of extraluminal gas versus a small gastric diverticulum on image 19. No mediastinal or hilar lymphadenopathy. No pleural or pericardial effusions. No acute fractures. No suspicious lytic or blastic osseous lesions. A few bibasilar linear densities favor subsegmental atelectasis. The central airways are patent. No pneumothorax. Mild emphysema. No focal lung consolidations to suggest a pneumonia. No evidence for pulmonary edema. A 4 mm indeterminate pulmonary nodule within the right lower lobe on image 59. IMPRESSION: 1. No evidence for a pulmonary embolus. 2. There is fat stranding surrounding the proximal stomach with possible gastric wall thickening. This is only partially imaged on this study and therefore not well assessed. There is a punctate focus of gas within or adjacent to the wall of the proximal stomach which raises the possibility of a focal ulceration versus less likely microperforation. Therefore, follow-up abdomen and pelvis CT with intravenous contrast recommended for further evaluation. 3. Left-sided nephrolithiasis. 4. Abnormal appearance to the right breast implant which they represent intracapsular rupture. 5. A 4 mm indeterminate pulmonary nodule within the right lower lobe. Please refer to below summary of Fleischner criteria recommendations for follow- up of incidental CT nodules (Glory Rogers, Guidelines for management of small pulmonary nodules detected on CT scans: A statement from the Fleischner Society, Radiology 237: [phone].) SOLID NODULES Solitary nodule size: <6 mm * Low risk patients: no follow-up needed * high risk patients: optional CT at 12 months Solitary nodule size: 6-8 mm * Low risk patients: follow-up at 6-12 months, then consider further follow-up at 18-24 months * high risk patients: initial follow-up CT at 6-12 months and then at 18-24 months if no change Solitary nodule size: >8 mm * either low or high risk patients - consider follow-up CT at 3 months, and/or CT-PET, and/or biopsy Multiple nodules size: <6 mm * Low risk patients: no routine follow-up * high risk patients: optional CT at 12 months Multiple nodules size: 6-8 mm * Low risk patients: follow-up at 3-6 months, then consider further follow-up at 18-24 months * high risk patients: follow-up at 3-6 months, then at 18-24 months if no change Multiple nodules size: >8 mm * Low risk patients: follow-up at 3-6 months, then consider further follow-up at 18-24 months * high risk patients: follow-up at 3-6 months, then at 18-24 months if no change Note: newly detected indeterminate nodule in persons 35 years of age or older. * Low risk patients: minimal or absent history of smoking and/or other known risk factors * high risk patients: history of smoking or of other known risk factors (e.g. first degree relative with lung cancer, or exposure to asbestos, radon, uranium) * if a nodule up to 8 mm is partly solid or is ground glass further follow-up is required after 24 months to exclude possible slow growing adenocarcinoma (ALEXIS) SUBSOLID NODULES Solitary pure ground-glass nodule * nodule size <6 mm - no CT follow-up required * nodule size >=6 mm - follow-up CT at 6-12 months, then every 2 years until 5 years Solitary part-solid nodule * nodule size <6 mm - no CT follow-up required * nodule size >=6 mm - follow-up CT at 3-6 months. If unchanged, and solid component remains <6 mm, then annual follow-up for 5 years Multiple subsolid nodules * nodule size <6 mm - follow-up CT at 3-6 months, consider further follow-up at 2 and 4 years if stable * nodule size >=6 mm - follow-up CT at 3-6 months, subsequent management based on the most suspicious nodule(s) ACT 112: Negative or not required by law. Electronically signed by: Adan Newsome M.D. 05/02/2024 11:44 AM ABDOMEN AND PELVIS CT WITHOUT CONTRAST CT DOSE: 332.56 mGy.cm HISTORY: possible perforated gastric ulcer on chest CT TECHNIQUE: Multiaxial CT images of the abdomen and pelvis were performed without contrast. A dose lowering technique was utilized adhering to the principles of ALARA. COMPARISON STUDY: None. FINDINGS: There is a 4 mm nodule within the right lower lobe on image 4. The left lung base is clear. Old postoperative changes within the proximal left femur. No acute fractures identified. Partially visualized right breast implant. The liver, gallbladder, spleen, adrenal glands, and kidneys appear unremarkable. Normal pancreas. No hydronephrosis. Normal caliber abdominal aorta. No retroperitoneal or pelvic lymphadenopathy. There is residual contrast within the urinary system and bladder from the recent CT examination. No definite bladder wall thickening. The uterus and bilateral adnexa are within normal limits. No dilated loops of bowel to suggest an obstruction. Difficult evaluation of the bowel due to the lack of intravenous or oral contrast. The delayed contrasted the recent chest CTA also results in suboptimal evaluation. Possible gastric wall thickening which is not well evaluated on this study. A punctate focus of gas again noted within the left upper quadrant on image 38. This is likely intraluminal but difficult to assess on this study. IMPRESSION: 1. Near nondiagnostic evaluation of the stomach due to the lack of intravenous and oral contrast. A punctate focus of gas described on the same day chest CTA appears to be intraluminal but is difficult to assess on this study. If the patient is complaining of epigastric pain then consider GI consultation to exclude the less likely possibility of a gastric ulceration/microperforation. 2. Gastric wall thickening which may be due to underdistention. 3. No evidence for a bowel obstruction. ACT 112: Negative or not required by law. Electronically signed by: Adan Newsome M.D. 05/02/2024 12:44 PM PG Care Time/CCT Total # of Minutes Spent Total Time Spent with Patient: Total time spent is greater than 50% in coordination of care (as documented) at patient's floor/unit and/or counseling patient: Coding Level of Care Code 97244 OFFICE CONSULT LVL Diagnoses History of peptic ulcer disease Z87.11
[2024-05-02] MEDS: PANTOprazole 80 MG in DEXTROSE 5% 100 ML IV ONE (16:18)
[2024-05-02] MEDS: PANTOprazole 40 MG in DEXTROSE 5% MINI-B 100 ML IV SCH (16:44)
[2024-05-02] MEDS: OPTIRAY 320 100ml IV ONE (17:43)
[2024-05-02] MEDS ORDERED: POLYETHYLENE (MIRALAX) 17 GM PACK PO PRN (18:02)
[2024-05-02] MEDS ORDERED: ONDANSETRON INJ 2 MG/ML 2 ML VIAL IV PRN (18:02)
--- NOTE | 2024-05-02 18:04 | CT Scan Report ---
ABDOMEN AND PELVIS CT WITH IV AND ORAL CONTRAST CT DOSE: 394.12 mGy.cm HISTORY: Abnormal CT. Follow-up. rule out gastric perf, roxanna of air on prior CT TECHNIQUE: Multiaxial CT images of the abdomen and pelvis were performed following the use of intrave nous and oral contrast. A dose lowering technique was utilized adhering to the principles of ALARA. COMPARISON STUDY: Abdomen and pelvis CT 05/02/2024. FINDINGS: There is a 4 mm nodule within the right lower lobe on image 3. Mild dependent changes seen within the lung bases. No pneumoperitoneum. No pneumatosis. Specifically, there is no extraluminal ga s noted at the gastroesophageal junction or proximal stomach. There is mild thickening at the gastroe sophageal junction which may represent a mild esophagitis/gastritis. No acute fractures. Old postoper ative changes again noted within the proximal left femur. The liver, gallbladder, pancreas, spleen, a nd adrenal glands unremarkable. There are single punctate nonobstructing stones within the kidneys. T he kidneys enhance normally. No hydronephrosis. No retroperitoneal lymphadenopathy. Normal caliber ab dominal aorta. No pelvic free fluid or pelvic lymphadenopathy. There is contrast within the bladder. No bladder wall thickening. The uterus and bilateral adnexa are unremarkable. No bowel wall thickenin g or obstruction. Normal appendix. IMPRESSION: 1. No extraluminal gas noted at the gastroesophageal junction or proximal stomach. 2. There is mild thickening at the gastroesophageal junction which may represent a mild esophagitis/g astritis. 3. Bilateral nephrolithiasis. No hydronephrosis. 4. A 4 mm nodule at the right lower lobe again noted. ACT 112: Negative or not required by law. Electronically signed by: Adan Newsome M.D. 05/02/2024 6:01 PM
[2024-05-02] MEDS ORDERED: ALUMINUM/MAGNESIUM SUSP 30 ML UDC PO PRN (18:27)
[2024-05-02] MEDS: SODIUM CHLORIDE 0.9% 1,000 ML IV SCH (21:13)
[2024-05-03] MEDS: MULTIVITAMIN TAB PO SCH (07:22)
[2024-05-03 10:35] LABS: Hematocrit (blood only) 38.8 % (37.0-47.0); Hemoglobin 13.1 g/dl (12.0-16.0); Mean Corpuscular Hemoglobin 31.8 pg (25.0-34.0); Mean Corpuscular Hgb Conc 33.8 g/dL (32.0-36.0); Mean Corpuscular Volume 94.2 fL (80.0-100.0); Platelet Count 212 K/uL (130-400); RDW Coefficient of Variation 12.2 % (11.5-14.5); RDW Standard Deviation 42.4 fL (36.4-46.3); Red Blood Count 4.12 M/uL (4.20-5.40); White Blood Count 3.08 K/ul (4.8-10.8)
--- NOTE | 2024-05-03 10:38 | Gastrointestinal Consultation ---
Date of Consultation May 03, 2024 Assessment & Plan (1) History of peptic ulcer disease: 64 year old female with history of fibromyalgia, PMR, RA, SVT, valvular heart disease and others below admitted through the ED w/ chest and upper abd pain with noncon imaging questioning gastric ulceration/microperforation, repeat contrast study reported w/ no extraluminal gas noted at the gastroesophageal junction or proximal stomach and mild thickening at the gastroesophageal junction which may represent a mild esophagitis/gastritis. Was started on a diet by general surgery team and tolerating IV PPI bolus/drip for 72 hours Then PO PPI BID She is followed by [facility] and would like to follow up with their department for OP EGD GERD dietary/lifestyle changes discussed - No NSAIDs - No ETOH - No tobacco I spent a total of 60 minutes on the date of service in review of patient's record, and previously obtained information in person and appropriate medical visit, discussion and education of plan, with patient and/or caregiver, placing orders for tests/referral/procedures as medically necessary and documentation of pertinent clinical information in patient's medical records for their visit today. Supervising Physician Co-Signing Physician Notes I personally saw and examined the patient. I have reviewed the chart and agree with the documentation provided by the MAIL [employer]RI[employer] SUPERVISOR including discussion about the assessment, treatment and plan. Briefly, 64 year old female with history of fibromyalgia, PMR, RA, SVT, valvular heart disease and others below admitted through the ED w/ chest and upper abd pain - GI asked to evaluate for abnormal imaging. CT with question of ge junction gas but repeat with gastritis and esophagitis. Now tolerating diet well. Denies abd pain. No nausea, vomiting. No GERD. No dysphagia. Denies black or bloody stools. Outpt EGD with gi. Possible gerd with atypical chest pain and gastritis. PPI qd till then. GI will sign off, please call with questions. History of Present Illness Reason for Consultation: Gastric wall thickening and fat stranding on CTAP Requesting Physician: Mara Attending Physician: Xena Terry MD History of Present Illness 64 year old female with history of fibromyalgia, PMR, RA, SVT, valvular heart disease and others below admitted through the ED w/ chest and upper abd pain - GI asked to evaluate for abnormal imaging. Pt was seen and evaluated, chart reviewed. Upon entering her room this AM she was eating breakfast. Tolerating well. Denies abd pain. No nausea, vomiting. No GERD. No dysphagia. Denies black or bloody stools. She endorses a history of PUD in the . She is not sure why - denies NSAIDs use or H.Pylori infection. Currently, uses NSAIDS PRN MSK pain but not daily. ETOH a few times a week. No tobacco. Denies any recent EGD Did have a colonoscopy in the past with Dr. Santana CTAP 2023: No extraluminal gas noted at the gastroesophageal junction or proximal stomach. There is mild thickening at the gastroesophageal junction which may represent a mild esophagitis/gastritis. Bilateral nephrolithiasis. No hydronephrosis. A 4 mm nodule at the right lower lobe again noted. CTAP 2023: Near nondiagnostic evaluation of the stomach due to the lack of intravenous and oral contrast. A punctate focus of gas described on the same day chest CTA appears to be intraluminal but is difficult to assess on this study. If the patient is complaining of epigastric pain then consider GI consultation to exclude the less likely possibility of a gastric ulceration/microperforation. Gastric wall thickening which may be due to underdistention. No evidence for a bowel obstruction. Allergies Allergy/AdvReac Type Severity Reaction Status Date / Time No Known Allergies Allergy Verified 01/22/24 07:40 Home Medications Medication Instructions Recorded Confirmed Type X-Flame 3 cap PO BID 02/13/21 05/02/24 History acyclovir 200 mg capsule 200 mg PO UD PRN Cold Sores 02/13/21 05/02/24 History multivitamin 1 tab PO QAM 02/13/21 05/02/24 History omega-3 fatty acids 2,000 mg PO QAM 02/13/21 05/02/24 History amino acids 1 cap PO QAM 01/07/24 05/02/24 History calcium carbonate 600 mg-vitamin 1 tab PO BID 01/07/24 05/02/24 History D3 5 mcg (200 unit) tablet coenzyme Q10 100 mg capsule 100 mg PO QAM 01/07/24 05/02/24 History (CoQ-10) aspirin 81 mg tablet,delayed 81 mg PO DAILY #90 tabs 01/22/24 05/02/24 Rx release (Adult Low Dose Aspirin) Topical Hormone Replacement Drops 4 drp topical PM 05/02/24 05/02/24 History Patient History Medical History Valvular heart disease Mild AR, mild to moderate MR, and mild TR noted on 11/2023 stress ECHO Interatrial cardiac shunt Noted on 11/2023 ECHO- reason for upcoming procedure Paroxysmal SVT (supraventricular tachycardia) Tachycardia and PSVT - prescribed metoprolol, has not yet started "wants more information on her heart before she starts the medication" Liver hemangioma - Abdominal ultrasound 12/31/23 showed nonspecific but suspected right hepatic lobe hemangiomameasures 0.6 cm x 0.6 cm x 0.7 cm approximately - Liver MRI (scheduled 01/30/24) Rheumatoid arthritis Hx of gastroesophageal reflux (GERD) History of anemia Depression Migraine ocular migraines Fibromyalgia PMR (polymyalgia rheumatica) Surgical History S/P hardware removal left hip S/P left cataract extraction History of right cataract surgery Nausea and vomiting after administration of anesthetic agent H/O breast implant right breast (never developed " defect") History of open reduction and internal fixation (ORIF) procedure left hip with hardware History of colonoscopy History of tonsillectomy Family History Other No family history of adverse response to anesthesia Social History Smoking Status: Never smoker Second Hand Exposure: No; Do You Dip or Chew Tobacco: No; Hx Alcohol Use: Yes Alcohol type: beer Hx Substance Use: No Preferred Language: Cypriot Communication Ability: Effective 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 Physical Exam Constitutional: WD/WN, vitals as above Respiratory: normal respiratory effort, lungs clear to auscultation Cardiovascular: RRR, no murmur, no edema Gastrointestinal (Abdomen): normal bowel sounds, soft, nontender, no hepatosplenomegaly Skin: no rashes, warm and dry Results & Data Vital Signs (Past 12 Hours) Vital Signs Temp Pulse Pulse Resp BP Pulse Ox O2 Del Method 05/03/24 07:59 36.5 C 56 L 16 123/75 99 Room Air 05/03/24 07:30 Room Air 05/03/24 07:00 49 L 05/03/24 02:24 36.7 C 49 L 14 124/68 98 Room Air 05/02/24 22:47 36.5 C 55 L 16 123/73 96 Room Air Laboratory Results 05/03/24 05/02/24 05/02/24 Range/Units 10:12 22:34 17:28 WBC Pending RBC Pending Hgb Pending Hct Pending MCV Pending MCH Pending MCHC Pending Plt Count Pending PT (9.0-12.0) Seconds INR (0.9-1.1) D-Dimer (0-500) ug/L FEU Sodium Pending Potassium Pending Chloride Pending Carbon Dioxide Pending Anion Gap Pending BUN Pending Creatinine Pending Est Cr Clr Drug Dosing Pending Est GFR ( Amer) Pending Est GFR (Non-Af Amer) Pending BUN/Creatinine Ratio Pending Glucose Pending Calcium Pending Phosphorus Pending Magnesium Pending Troponin I High Sens Pending 3.1 3.2 (0-14) pg/ml 05/02/24 Range/Units 09:18 WBC RBC Hgb Hct MCV MCH MCHC Plt Count PT 10.2 (9.0-12.0) Seconds INR 0.9 (0.9-1.1) D-Dimer 770 H* (0-500) ug/L FEU Sodium Potassium Chloride Carbon Dioxide Anion Gap BUN Creatinine Est Cr Clr Drug Dosing Est GFR ( Amer) Est GFR (Non-Af Amer) BUN/Creatinine Ratio Glucose Calcium Phosphorus Magnesium Troponin I High Sens (0-14) pg/ml PG Care Time/CCT Total # of Minutes Spent Total Time Spent with Patient: Total time spent is greater than 50% in coordination of care (as documented) at patient's floor/unit and/or counseling patient: Coding Level of Care Code 90601 IN/OBS CONSULT LVL 4,60M Diagnoses History of peptic ulcer disease Z87.11
[2024-05-03 10:51] LABS: Calcium 9.4 mg/dl (8.6-10.3); Potassium 3.9 mmol/L (3.5-5.1)
[2024-05-03 10:56] LABS: BUN Creatinine Ratio 16.4 (10-20); Creatinine Clr Calc Pharmacy 71.6 ml/min; Est GFR (African American) 110.3 ml/min; Est GFR (Non-African American) 95.1 ml/min; Phosphorus 3.2 mg/dl (2.5-4.9)
[2024-05-03 11:02] LABS: Troponin I High Sensitivity 2.8 pg/ml (0-14)
--- NOTE | 2024-05-03 11:16 | Surgery Progress Note ---
Date of Service May 03, 2024 Assessment & Plan (1) History of peptic ulcer disease: Plan: CT a/p with oral contrast yesterday evening ruled out gastric micro perf vitals stable pt denies abdominal complaints this AM okay for diet advancement. no indications for surgery rec GI consult at some point to consider EGD likely output we will sign off/call with questions/concerns Admission and Anticipated Discharge Date Admission Date: May 02, 2024 Supervising Physician Co-Signing Physician Notes Patient seen and examined, labs and imaging reviewed, agree with above. Admitted with chest pain, concern for possible gastric perforation on noncontrast CT. Abdomen soft, nontender. Vital signs normal. Labs un remarkable. CT with oral and IV contrast personally viewed interpreted agree with the assessment of no evidence of gastric perforation. Surgery will sign off, call with questions or concerns Subjective patient reports feeling well. denies abdominal complaints Physical Exam Physical Exam: awake/alert, no distress Gastrointestinal (Abdomen): Percussion/Palpation: abdomen soft Results & Data Vital Signs (Past 12 Hours) Vital Signs Temp Pulse Pulse Resp BP Pulse Ox O2 Del Method 05/03/24 07:59 97.7 F 56 L 16 123/75 99 Room Air 05/03/24 07:30 Room Air 05/03/24 07:00 49 L 05/03/24 02:24 98.1 F 49 L 14 124/68 98 Room Air PG Care Time/CCT Total # of Minutes Spent Total Time Spent with Patient: Total time spent is greater than 50% in coordination of care (as documented) at patient's floor/unit and/or counseling patient: Coding Level of Care Code 10852 SUB INP/OBS CARE 25MIN Diagnoses History of peptic ulcer disease Z87.11
--- NOTE | 2024-05-03 14:47 | Hospitalist Progress Note ---
Date of Service May 03, 2024 Assessment & Plan (1) Chest pain: (2) Upper abdominal pain: (3) Abnormal CT of the abdomen: (4) History of peptic ulcer disease: Plan 64 year old female with h/o peptic ulcer, PFO, PVCs who presented to the ED with an episode of chest/upper abdominal pain. Chest/upper abdominal pain- currently symptoms improved. Recent cardiac work up including stress test and CT cardiac calcium score was negative. Serial troponins x 3 are negative, EKG unremarkable. Awaiting echo of the heart D dimer elevated but no PE on CT chest. She remains free from any chest pain since admission She wants to go home and awaiting echo-showed mild concentric LVH, no wall motion abnormalities, LV systolic function and is normal with EF 65 to 70%, RV is normal in size and function, aortic valve sclerosis without significant stenosis and mild AR Discussed with her and she definitely wanted to go home and she will be discharged this afternoon H/o PUD CT of the abdomen pelvis showed possible microperforation involving the lower esophagus and proximal gastric area Seen by surgical team Repeat CT of the abdomen pelvis with IV contrast did not show any extraluminal gas No question of perforation Started 1 intravenous Protonix drip and the patient has been stable since admission on that Appreciate GI input and recommendation Advised to have Protonix drip for 48 hours and then Protonix twice daily She was a started regular diet She will stay in the hospital for a total of 48 hours to get the IV Protonix She is well aware about the risk of having further complication from her esophagitis/gastritis She will accept the risk and still will go home Imaging studies: CTA chest- 1. No evidence for a pulmonary embolus. 2. There is fat stranding surrounding the proximal stomach with possible gastric wall thickening. This is only partially imaged on this study and therefore not well assessed. There is a punctate focus of gas within or adjacent to the wall of the proximal stomach which raises the possibility of a focal ulceration versus less likely microperforation. Therefore, follow-up abdomen and pelvis CT with intravenous contrast recommended for further evaluation. 3. Left-sided nephrolithiasis. 4. Abnormal appearance to the right breast implant which they represent intracapsular rupture. 5. A 4 mm indeterminate pulmonary nodule within the right lower lob CT A/P without contrast 1. Near nondiagnostic evaluation of the stomach due to the lack of intravenous and oral contrast. A punctate focus of gas described on the same day chest CTA appears to be intraluminal but is difficult to assess on this study. If the patient is complaining of epigastric pain then consider GI consultation to exclude the less likely possibility of a gastric ulceration/microperforation. 2. Gastric wall thickening which may be due to underdistention. 3. No evidence for a bowel obstruction. PFO/PVCs- follows Dr Cook. Mild hypercalcemia- gentle hydration, recheck in am. DVT ppx- SCD, ambulation Full code Dispo- medsurg tele She wants to go home this afternoon Admission and Anticipated Discharge Date Admission Date: May 02, 2024 Subjective 05/03/2024 Patient was seen and examined in medical telemetry in presence of the She was admitted with 2 episodes of more central chest pain associated with numbness and tingling involving the extremities and without any evidence of shortness of breath and sweating She remains free from any pain since admission Denies any other significant symptoms this morning Review of Systems Review of Systems: All systems reviewed and are unremarkable except as noted below Physical Exam Physical Exam: Lying in bed without any acute distress Constitutional: average body habitus; not ill appearing Eyes: PERRL, conjunctivae normal, anicteric sclerae ENMT: external ear and nose normal, oropharynx normal Neck: trachea midline, no thyromegaly Respiratory: no respiratory distress Auscultation: lungs clear to auscultation bilaterally Cardiovascular: Rate/Rhythm: regular rate and regular rhythm; not tachycardic Heart Sounds: normal S1 and normal S2; no murmur Extremities: no edema Gastrointestinal (Abdomen): Inspection/Auscultation: normal bowel sounds; abdomen not distended Percussion/Palpation: abdomen nontender Musculoskeletal: No acute arthritis involving any of the joints Neurologic: normal touch/pain/proprioception and moves all extremities; no focal motor deficits Psychiatric: A+Ox3, euthymic affect Lymphatic: no cervical or axillary lymphadenopathy Results & Data Results & Data Vital Signs (Past 12 Hours) Vital Signs Temp Pulse Pulse Resp BP Pulse Ox O2 Del Method 05/03/24 12:25 37.0 C 76 18 160/81 H 100 Room Air 05/03/24 07:59 36.5 C 56 L 16 123/75 99 Room Air 05/03/24 07:30 Room Air 05/03/24 07:00 49 L Laboratory Results Short CBC 05/03/24 Range/Units 10:12 WBC 3.08 L (4.8-10.8) K/ul Hgb 13.1 (12.0-16.0) g/dl Hct 38.8 (37.0-47.0) % Plt Count 212 (130-400) K/uL BMP 05/03/24 10:12 Sodium 135 L Potassium 3.9 Chloride 103 Carbon Dioxide 28 BUN 10 Creatinine 0.61 Glucose 93 Calcium 9.4 Medications Administered Current Inpatient Medications Al Hydrox/Mg Hydrox/Simethicone (Aluminum/Magnesium Susp 30 Ml Udc) 30 ml PO Q6H PRN PRN Reason: Heartburn Stop: 06/01/24 18:26 Pantoprazole Sodium 40 mg/ (Dextrose) 100 mls @ 20 mls/hr IV Q5H [facility] Stop: 06/01/24 15:59 Last Admin: 05/03/24 12:12 Dose: 8 mg/hr, 20 mls/hr Multivitamins (Multivitamin Tab) 1 tab PO QAM [facility] Stop: 06/02/24 08:59 Last Admin: 05/03/24 07:29 Dose: Not Given Ondansetron HCl (Ondansetron Inj 2 Mg/Ml 2 Ml Vial) 4 mg IV Q6H PRN PRN Reason: Nausea Stop: 06/01/24 18:01 Polyethylene Glycol (Polyethylene (Miralax) 17 Gm Pack) 17 gm PO DAILY PRN PRN Reason: Constipation Stop: 06/01/24 18:01
--- NOTE | 2024-05-03 17:06 | Discharge Summary ---
Date of Service May 03, 2024 Admission HPI Per Admitting Provider 64 year old female with h/o peptic ulcer, PFO, PVCs who presented to the ED with an episode of chest/upper abdominal pain. Had 4 episodes so far, each in February, March, yesterday and today. She describes it as chest pressure sensation that goes from her chest down to the belly which would last about 5-10 minutes and resolve completely and sometimes associated with bilateral hand tingling. No N/V. No diaphoresis, SOB, fever or chills. She had cardiac work up with Dr Cook few months back with negative stress test, calcium score. She is pretty active physically and denies any symptoms with her physical activities. She does not smoke. She drinks 1 beer 2-3 times a week. Her only medication is baby aspirin. She does have a history of peptic ulcer in and was on PPI for a year. She currently does not have any heart burn symptoms and does not take any tums or PPI. She however takes NSAIDs couple times a week for her pain. She fasts for about 14 hours daily. Currently, she feels much better, her pain has s ignificantly improved, and now has only a mild pain in her epigastrium/left upper quadrant and her tingling have essentially resolved. Admission Exam Per Admitting Provider Physical Exam: General: Lying comfortably in bed, not in distress, on room air HEENT: EOMI, CHRISSIE, MMM Chest: Clear breath sounds bilaterally, no wheezes or crackles CVS: Regular rate and rhythm, normal heart sounds, no murmur Abdomen: Soft, mild tenderness, not distended, normal bowel sounds Neuro: Awake, alert, oriented, conversing well, non focal Extremities: No cyanosis, clubbing or edema Psych: Calm, cooperative, pleasant Principal Diagnosis Chest painno ACS, esophagitis/gastritis Discharge Exam Lying in bed without any acute distress Constitutional average body habitus; not ill appearing Eyes PERRL, conjunctivae normal, anicteric sclerae ENMT external ear and nose normal, oropharynx normal Neck trachea midline, no thyromegaly Respiratory no respiratory distress Auscultation: lungs clear to auscultation bilaterally Cardiovascular Rate/Rhythm: regular rate and regular rhythm; not tachycardic Heart Sounds: normal S1 and normal S2; no murmur Extremities: no edema Gastrointestinal (Abdomen) Inspection/Auscultation: normal bowel sounds; abdomen not distended Percussion/Palpation: abdomen nontender Neurologic normal touch/pain/proprioception and moves all extremities; no focal motor deficits Psychiatric A+Ox3, euthymic affect Lymphatic no cervical or axillary lymphadenopathy Discharge Data Allergies Allergy/AdvReac Type Severity Reaction Status Date / Time No Known Allergies Allergy Verified 01/22/24 07:40 Consultations 05/02/24 15:43 Consult General Surgery Routine 05/02/24 15:44 Consult Gastroenterology Routine Ordered Studies 05/02/24 11:02 CT angio chest PE protocol Stat 05/02/24 12:18 CT Abdomen and Pelvis [CT abd pelvis wo con] Stat 05/02/24 15:25 CT abd pelvis oral and IV con Routine Hospital Course (1) Chest pain: (2) Upper abdominal pain: (3) Abnormal CT of the abdomen: (4) History of peptic ulcer disease: Plan 64 year old female with h/o peptic ulcer, PFO, PVCs who presented to the ED with an episode of chest/upper abdominal pain. Chest/upper abdominal pain- currently symptoms improved. Recent cardiac work up including stress test and CT cardiac calcium score was negative. Serial troponins x 3 are negative, EKG unremarkable. Awaiting echo of the heart D dimer elevated but no PE on CT chest. She remains free from any chest pain since admission She wants to go home and awaiting echo-showed mild concentric LVH, no wall motion abnormalities, LV systolic function and is normal with EF 65 to 70%, RV is normal in size and function, aortic valve sclerosis without significant stenosis and mild AR Discussed with her and she definitely wanted to go home and she will be discharged this afternoon H/o PUD CT of the abdomen pelvis showed possible microperforation involving the lower esophagus and proximal gastric area Seen by surgical team Repeat CT of the abdomen pelvis with IV contrast did not show any extraluminal gas No question of perforation Started 1 intravenous Protonix drip and the patient has been stable since admission on that Appreciate GI input and recommendation Advised to have Protonix drip for 48 hours and then Protonix twice daily She was a started regular diet She will stay in the hospital for a total of 48 hours to get the IV Protonix She is well aware about the risk of having further complication from her eso phagitis/gastritis She will accept the risk and still will go home Imaging studies: CTA chest- 1. No evidence for a pulmonary embolus. 2. There is fat stranding surrounding the proximal stomach with possible gastric wall thickening. This is only partially imaged on this study and therefore not well assessed. There is a punctate focus of gas within or adjacent to the wall of the proximal stomach which raises the possibility of a focal ulceration versus less likely microperforation. Therefore, follow-up abdomen and pelvis CT with intravenous contrast recommended for further evaluation. 3. Left-sided nephrolithiasis. 4. Abnormal appearance to the right breast implant which they represent intracapsular rupture. 5. A 4 mm indeterminate pulmonary nodule within the right lower lob CT A/P without contrast 1. Near nondiagnostic evaluation of the stomach due to the lack of intravenous and oral contrast. A punctate focus of gas described on the same day chest CTA appears to be intraluminal but is difficult to assess on this study. If the patient is complaining of epigastric pain then consider GI consultation to exclude the less likely possibility of a gastric ulceration/microperforation. 2. Gastric wall thickening which may be due to underdistention. 3. No evidence for a bowel obstruction. PFO/PVCs- follows Dr Cook. Mild hypercalcemia- gentle hydration, recheck in am. DVT ppx- SCD, ambulation Full code Dispo- medsurg tele She wants to go home this afternoon Total Time Total Time Spent Total Time Spent (In Minutes): 40 minutes Discharge Plan Discharge Items Patient Disposition: Home - Self-Care Reason For Visit: CARDIAC ASSESSMENT Discharge Diagnosis: Chest painno ACS, esophagitis/gastritis Condition on Discharge: Fair Activity: Resume your previous activity Non-emergency contact: Primary Care Provider Call non-emergency contact if: you have any medication questions and your symptoms worsen Follow-up/Referrals: Armando Cao DO [Primary Care Provider] - 05/07/24 11:00 am (Your appointment will be with Dr. Borja) Diet: Heart Healthy and Vegetarian (Lacto-Ovo) Addtl Attending Provider Instructions: Please take your medications as advised Do not take any NSAIDs like ibuprofen, Motrin, naproxen etc. Advised to quit drinking and also smoking. Keep appointments with renal care provider Pending Studies at Discharge: No Stand-Alone Forms: My [facility] [employer], Smoking Cessation Medications and DC Order Prescriptions: New pantoprazole [Protonix] 40 mg tablet,delayed release (DR/EC) 40 mg PO BID Qty: 60 0RF Continued multivitamin Tablet 1 tab PO QAM acyclovir 200 mg Capsule 200 mg PO UD PRN (Reason: Cold Sores) omega-3 fatty acids Capsule 2,000 mg PO QAM X-Flame 3 cap PO BID calcium carbonate-vitamin D3 600 mg-5 mcg (200 unit) Tablet 1 tab PO BID amino acids Capsule 1 cap PO QAM coenzyme Q10 [CoQ-10] 100 mg Capsule 100 mg PO QAM aspirin [Adult Low Dose Aspirin] 81 mg tablet,delayed release (DR/EC) 81 mg PO DAILY Qty: 90 3RF Topical Hormone Replacement Drops 4 drp topical PM Discharge Orders: Discharge Order (Routine); Ordered 05/03/24 Ordered By: Xena Terry Admission Data Admit Date/Time: 05/02/24 15:42 Attending Provider: Xena Terry Admit Provider: Adeel Diaz Primary Care Provider: Armando Cao Other Providers: Alan Alvarado; Daphnie Johnson; Adeel Diaz Other Interventions: Discharge Summary Assessment (RN) Last Done: 05/03/24 16:25
== END 2024-05-03 17:16 | disposition home or self-care (01) | DRG 392 ==
LOC: ED 08:54 → SUATTDRO 15:42 → 2N 15:42